=== PATIENT | female | born 1990 ===

== ENCOUNTER 2024-10-23 14:14 | Outpatient (REF) | payer MEDICAID, SELFPAY ==
--- OUTSIDE RECORDS SUMMARY | 2024-10-23 15:37 | XMS_ITS | Clinical Summary ---
Author Organization [facility] Address [address] [place] [address] Care Team Providers Care Partner Integration Planner Name Role Phone Unavailable Primary Care Provider Unavailabl e Allergies Active Allergy Reactions Criticality Noted Date Comments Diphenhydramine 05/03/2024 IV BENADRYL Medications Medication Sig Dispensed Refills Start Date End Date Status levETIRAcetam (KEPPRA) 500 MG tablet Take 1 tablet (500 mg total) by mouth 2 (two) times a day. 60 tablet 3 05/09/2024 Active lamoTRIgine (LaMICtal) 150 MG tablet Take 1 tablet (150 mg total) by mouth 2 (two) times a day. 60 tablet 3 06/11/2024 Active Social History Tobacco Use Types Packs/Day Years Used Date Smoking Tobacco: Never Assessed Sex and Gender Information Value Date Recorded Sex Assigned at Female 05/03/2024 8:38 AM EDT Gender Identity Not on file Sexual Orientation Not on file Job Start Date Occupation Industry Not on file Not on file Not on file Last Filed Vital Signs Vital Sign Reading Time Taken Comments Blood Pressure 96/65 06/11/2024 11:59 AM EDT Pulse 83 06/11/2024 11:59 AM EDT Temperature 36.1 ??C (96.9 ??F) 06/11/2024 11:59 AM E DT Respiratory Rate - - Oxygen Saturation 99% 05/03/2024 8:53 AM EDT Inhaled Oxygen Concentration - - Weight 60.3 kg (133 lb) 05/03/2024 8:53 AM EDT Height 157.5 cm (5' 2 ) 05/03/2024 8:53 AM EDT Body Mass Index 24.33 05/03/2024 8:53 AM EDT Plan of Treatment Health Maintenance Due Date Last Done Comments Hepatitis B Vaccines (1 of 3 - 3-dose series) 1992 Hepatitis C Screening 1992 COVID-19 Vaccine (#1) 02/27/1993 Depression Screening 2004 Preventative Health Evaluation 2010 DTap / Tdap / Td (1 - Tdap) 2011 Cervical Cancer Screening (P ap Smear) 2013 Influenza Vaccine (#1) 2024 Pneumococcal Vaccine Aged Out No long er eligible based on patient's age to complete this topic RSV Ped < 20 months Aged Out No longe r eligible based on patient's age to complete this topic
--- OUTSIDE RECORDS SUMMARY | 2024-10-23 15:37 | XMS_ITS | Encounter Summary ---
Author Organization [employer] Address [address] [facility] [address] [place] [address] Care Team Providers Care Landman Name Role Phone Terra Gonzalez MD Primary Care Provider + Reason for Visit * Reason Onset Date Comments Chart prep 10/21/2024 Encounter Details Date Type Department Care Team ([facility] st Contact Info) Description 10/21/2024 Telephone [facility] MEDICINE [address] [place], [place] [phone] Terra Gonzalez MD [address] [place] [address] Chart prep Social History Tobacco Use Types Packs/Day Years Used Date Smoking Tobacco: Never Smokeless Tobacco: Never Alcohol Use Standard Drinks/Week Comments Never 0 (1 standard drink = 0.6 oz pur e alcohol) Housing Stability Answer Date Recorded What is your housing situation today? I have shahnaz taylor 08/05/[address] you li ve. Do you have problems with any of the following? None of the above 08/05/2024 Food Insecurity Answer Date Recorded Within the past 12 months, y ou worried that your food would run out before you got money to buy more: Never True 08/05/2024 Within the past 12 months,th e food you bought just didn't last and you didn't have enough money to get more: Never True Transportation Answer Date Recorded In the past 12 months, has l ack of transportation kept you from medical appts, meetings, work or from getting things needed for daily living? No 08/05/2024 Utilities Answer Date Recorded In the past 12 months, has t he electric, gas, oil or water company threatened to shut off services in your home? No 08/05/2024 Depression Answer Date Recorded Patient Health Questionnaire-2 Score 0 08/19/2024 Internet Access Answer Date Recorded Internet Access Q1 No 08/19/2024 Internet Access Q2 I do not want or need it 05/2024 Comments No Sex and Gender Information Value Date Recorded Sex Assigned at Female 03/21/2024 11:43 AM EDT Legal Sex Female 11:42 AM EDT Gender Identity Female 03/21/2024 11:43 AM EDT Sexual Orientation Don't know 08/16/2024 8: 33 AM EST documented as of this encounter Miscellaneous Notes * Telephone Encounter - Vibha Cuevas MA - 10/21/2024 2:51 PM EST Chart Prep Labs: not done Images: done Vaccines due: yes Referrals: N/A Screenings: pap smear Overdue care gaps: N/A documented in this encounter Plan of Treatment Upcoming Encounters Date Type Department Care Team (Late st Contact Info) Description 12/05/2024 9:45 AM EDT Office Visit [facility] MEDICINE [address] [place] [address] Terra Gonzalez MD [address] [place] [address] documented as of this encounter Visit Diagnoses Not on filedocumented in this encounter Care Teams Landman Relationship Specialty Start Date End Date Terra Gonzalez MD [address] [place] [address] PCP - General Internal Medicine 08/19/24 documented as of this encounter
--- OUTSIDE RECORDS SUMMARY | 2024-10-23 15:37 | XMS_ITS | Encounter Summary ---
Author Organization [employer] Address [address] [place] [address] Care Team Providers Care Field Machinist Name Role Phone Terra Gonzalez MD Primary Care Provider + Encounter Details Date Type Department Care Team (Latest Contact Info) Description 10/23/2024 Travel Social History Tobacco Use Types Packs/Day Years Used Date Smoking Tobacco: Never Smokeless Tobacco: Never Alcohol Use Standard Drinks/Week Comments Never 0 (1 standard drink = 0.6 oz pur e alcohol) Housing Stability Answer Date Recorded What is your housing situation today? I have shahnaz brandon 08/05/[address] you li [...] AM EST documented as of this encounter Plan of Treatment Upcoming Encounters Date Type Department Care Team (Late st Contact Info) Description 12/05/2024 9:45 AM EDT Office Visit [facility] MEDICINE [address] [place] [address] Terra Gonzalez MD [address] [place] [address] documented as of this encounter Visit Diagnoses Not on filedocumented in this encounter Care Teams Field Machinist Relationship Specialty Start Date End Date Terra Gonzalez MD [address] [place] [address] PCP - General Internal Medicine 08/19/24 documented as of this encounter
--- OUTSIDE RECORDS SUMMARY | 2024-10-23 15:37 | XMS_ITS | Encounter Summary ---
Author Organization [employer] Address [address] [place] [address] [address], [place] [address] Care Team Providers Care Armor Officer Name Role Phone Terra Gonzalez MD Primary Care Provider + Reason for Referral * Consultation (Routine) - Authorized Specialty Diagnoses / Procedures Referred By Tj wilburn Referred To Contact Behavioral Health Diagnoses Adjustment disorder with anxious mood Terra Gonzalez MD [address] [place] [address] Phone: tel: fax: Referral ID Status Reason Start Date Expiration Date Visits Requested Visits Authorized [id number] Authorized Specialty Services Required 10/23/2024 10/23/2025 1 1 * Consultation (Routine) - Pending Review Specialty Diagnoses / Procedures Referred By Tj wilburn Referred To Contact Physical Therapy Diagnoses Upper back pain Terra Gonzalez MD [address] [place] [address] Phone: tel: fax: Referral ID Status Reason Start Date Expiration Date Visits Requested Visits Authorized [id number] Pending Review Specialty Services Required 10/23/2024 10/23/2025 1 1 Reason for Visit * Reason Comments Gynecologic Exam Encounter Details Date Type Department Care Team (Latest Contact Info) Description 10/23/2024 9:15 AM EST Procedure Visit [facility] MEDICINE [address] [place] [address] Terra Gonzalez MD [address] [place] [address] Encounter for cervical Pap smear with pelvic exam (Primary Dx); Seizure disorder (CMS/HCC); Acute pain of left knee; Upper back pain; IUD (intrauterine device) in place; Encounter for immunization; Adjustment disorder with anxious mood Social History Tobacco Use Types Packs/Day Years Used Date Smoking Tobacco: Never Smokeless Tobacco: Never Tobacco Cessation:Counseling Given: Not Answered Alcohol Use Standard Drinks/Week Comments Never 0 [...] AM EST documented as of this encounter Last Filed Vital Signs Vital Sign Reading Time Taken Comments Blood Pressure 102/65 10/23/2024 9:17 AM EST Pulse 80 10/23/2024 9:17 AM EST Temperature 35.8 ??C (96.5 ??F) 10/23/2024 9:17 AM ES T Respiratory Rate - - Oxygen Saturation 100% 10/23/2024 9:17 AM EST Inhaled Oxygen Concentration - - Weight 58.5 kg (129 lb) 10/23/2024 9:17 AM EST Height 157.5 cm (5' 2 ) 10/23/2024 9:17 AM EST Body Mass Index 23.59 10/23/2024 9:17 AM EST documented in this encounter Progress Notes * Terra Gonzalez MD - 10/23/2024 9:15 AM EST SUBJECTIVE: Juan Carlos Howard is a 34 y.o. year old female who presents for PAP . Denies recent illness, injury, or hospitalization. Patient here for Pap smear. Patient was seen in [facility] ED on October 05 due to chest pain at rest. Her labs were essentially normal with negative troponins, EKG showing sinus tachycardia but no ischemic changes. Patientwas discharged to follow-up with test. She reports that he was prior related to a cannabis gummy that she had consumed hours prior to the event. She has not had a recent episode similar to it and never had a similar episode in the past. She denies using any other recreational substance since. 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 Her EEG at the time was reportedly abnormal with localized spike and wave activity in the left temporal frontal central regions, no seizures appreciated Her last Pap smear was in 2017, no history of abnormal Pap. Last menstrual period September 26, she has regular. It has and uses IUD for control, placedon 2021 in [place]. Denies vaginal discharge, pelvic pain, dyspareunia, dysuria. 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 She feels safe at home and is able to reach out for safety. Acute Concerns: She complains of recurrent upper back pain for the past 5 to 10 years, she has received physical therapy in the past and was told that she has some deviation of her spine. She would like to be referred to counseling to help her younger son with ADHD to deal with different situations and also to help her anxiety towards managing this condition. 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 Lives with AMAB partner and 2 children ages 8 and 12 yo Patient Active Problem List Diagnosis Seizure disorder (CMS/HCC) Chronic nonintractable headache Decreased vision in both eyes Nasopharyngitis acute Preventative health care Encounter for cervical Pap smear with pelvic exam Acute pain of left knee Upper back pain IUD (intrauterine device) in place No family history on file. Review of Systems Constitutional: Negative for chills, fatigue and fever. HENT: Negative for congestion, ear pain, nosebleeds, rhinorrhea, sinus pressure, sore throat and trouble swallowing. Eyes: Negative for pain and discharge. Respiratory: Negative for cough, chest tightness and shortness of breath. Cardiovascular: Negative for chest pain, palpitations and leg swelling. Gastrointestinal: Negative for abdominal pain, blood in stool, constipation, diarrhea and nausea. Endocrine: Negative for polydipsia and polyuria. Genitourinary: Negative for dysuria, frequency, genital sores, pelvic pain and vaginal discharge. Musculoskeletal: Positive for arthralgias and back pain. Negative for neck pain. Skin: Negative for rash. Allergic/Immunologic: Negative for environmental allergies. Neurological: Negative for dizziness, seizures, weakness, light-headedness and headaches. Hematological: Negative for adenopathy. Psychiatric/Behavioral: Negative for agitation, behavioral problems, self-injury and suicidal ideas. The patient is nervous/anxious. OBJECTIVE: Vitals: 10/23/24 0917 BP: 102/65 Pulse: 80 Temp: 96.5 ??F (35.8 ??C) SpO2: 100% Physical Exam Exam conducted with a holiday detector operator present (Vibha Cuevas [place]). HENT: Right Ear: Tympanic membrane and ear canal normal. Left Ear: Tympanic membrane and ear canal normal. Mouth/Throat: Mouth: Mucous membranes are moist. Pharynx: No oropharyngeal exudate or posterior oropharyngeal erythema. Eyes: Pupils: Pupils are equal, round, and reactive to light. Cardiovascular: Rate and Rhythm: Regular rhythm. Pulses: Normal pulses. Heart sounds: Normal heart sounds. No murmur heard. Pulmonary: Breath sounds: Normal breath sounds. Abdominal: General: Bowel sounds are normal. Palpations: Abdomen is soft. Tenderness: There is no abdominal tenderness. Genitourinary: Labia: Right: No lesion. Left: No lesion. Vagina: Normal. Cervix: Normal. No cervical motion tenderness, discharge, friability or erythema. Adnexa: Right adnexa normal and left adnexa normal. Rectum: Normal. Guaiac result negative. Comments: IUD strings visible, out of the OS, no friability or bleeding. Musculoskeletal: General: Normal range of motion. Cervical back: Neck supple. Tenderness present. Thoracic back: Tenderness present. Left ankle: Tenderness present over the medial malleolus. Skin: General: Skin is warm. Neurological: General: No focal deficit present. Mental Status: She is alert and oriented to person, place, and time. Psychiatric: Mood and Affect: Mood normal. Behavior: Behavior normal. Problem List Items Addressed This Visit Encounter for cervical Pap smear with pelvic exam - Primary Pelvic exam today wnl, IUD strings in place. FU pap smear results/HPV/STI testing and will call back PRN positive results or FU in 3 months Pt feels safe at home no concern for DV/STDs Counseled regarding STI prevention If today's pap smear/co testing is normal next one will be due in 5 years. Relevant Orders Bacterial Vaginosis Chlamydia/N. Gonorrhoeae RNA, TMA, Urogenitial Pap Smear Seizure disorder (CMS/HCC) Patient had a recurrent seizure last month. Follow-up with Dr Wood from [facility] Continue Lamictal 850 mg twice daily Advise against driving for at least the next 6-month or until neurology clearance. Avoid to use recreational substances or alcohol Acute pain of left knee Take Meloxicam daily x 5d then tylenol prn Upper back pain Refer to PT Order Xrays spine to ro scoliosis Relevant Orders Referral to Physical Therapy XR Thoracic Spine 2 Views IUD (intrauterine device) in place Reportedly inserted circa 2021 Strings visible, in place. Normal pelvic exam Other Visit Diagnoses Encounter for immunization Relevant Orders COVID-19 VACCINE ([employer]) [id number] 12 yrs + (Completed) Adjustment disorder with anxious mood Relevant Orders Referral to Behavioral Health Follow Up: Current Outpatient Medications on File Prior to Visit Medication Sig Dispense Refill fluticasone (Flonase) 50 MCG/ACT nasal spray Administer 1 spray into each nostril Once per day. 16 g 0 lamoTRIgine (LaMICtal) 100 MG tablet Take 100 mg by mouth 2 times daily. levETIRAcetam (Keppra) 750 MG tablet Take 750 mg by mouth 2 times daily. No current facility-administered medications on file prior to visit. documented in this encounter Miscellaneous Notes * Assessment & Plan Note - Terra Gonzalez MD - 10/23/2024 3:15 PM EST Associated Problem(s): Upper back pain Refer to PT Order Xrays spine to ro scoliosis * Assessment & Plan Note - Terra Gonzalez MD - 10/23/2024 3:14 PM EST Associated Problem(s): IUD (intrauterine device) in place Reportedly inserted circa 2021 Strings visible, in place. Normal pelvic exam * Assessment & Plan Note - Terra Gonzalez MD - 10/23/2024 3:13 PM EST Associated Problem(s): Acute pain of left knee Take Meloxicam daily x 5d then tylenol prn * Assessment & Plan Note - Terra Gonzalez MD - 10/23/2024 9:57 AM EST Associated Problem(s): Encounter for cervical Pap smear with pelvic exam Pelvic exam today wnl, IUD strings in place. FU pap smear results/HPV/STI testing and will call back PRN positive results or FU in 3 months Pt feels safe at home no concern for DV/STDs Counseled regarding STI prevention If today's pap smear/co testing is normal next one will be due in 5 years. * Assessment & Plan Note - Terra Gonzalez MD - 10/23/2024 9:34 AM EST Associated Problem(s): Seizure disorder (CMS/HCC) Patient had a recurrent seizure last month. Follow-up with Dr Wood from [facility] Continue Lamictal 850 mg twice daily Advise against driving for at least the next 6-month or until neurology clearance. Avoid to use recreational substances or alcohol documented in this encounter Plan of Treatment Upcoming Encounters Date Type Department Care Team (Late st Contact Info) Description 12/05/2024 9:45 AM EDT Office Visit [facility] MEDICINE [address] [place] [phone] Terra Gonzalez MD [address] [place] [address] Scheduled Orders Name Type Priority Associated Diagnoses Order Schedule Bacterial Vaginosis Microbiology Routine Encounter for cervical Pap smear with pelvic exam Expected: 10/23/2024 (Approximate), Expires: 10/23/2025 Chlamydia/N. Gonorrhoeae RNA, TMA, Urogenitial Microbiology Routine Encounter for cervical Pap smear with pelvic exam Ordered: 10/23/2024 Pap Smear Pathology and Cytology Routine Encounter for cervical Pap smear with pelvic exam Ordered: 10/23/2024 XR Thoracic Spine 2 Views Imaging Routine Upper back pain Expected: 10/23/2024 (Approximate), Expires: 10/23/2025 Scheduled Referrals Name Type Priority Associated Diagnoses Order Schedule Referral to Physical Therapy Outpatient Referral Routine Upper back pain Expected: 10/23/2024 (Approximate), Expires: 10/23/2025 Referral to Behavioral Health Outpatient Referral Routine Adjustment disorder with anxious mood Expected: 10/23/2024 (Approximate), Expires: 10/23/2025 documented as of this encounter Visit Diagnoses Diagnosis Encounter for cervical Pap smear with pelvic exam- Primary Seizure disorder (CMS/HCC) Unspecified epilepsy without mention of intractable epilepsy Acute pain of left knee Upper back pain Unspecified backache IUD (intrauterine device) in place Presence of intrauterine contraceptive device Encounter for immunization Adjustment disorder with anxious mood Adjustment disorder with anxiety documented in this encounter Care Teams Armor Officer Relationship Specialty Start Date End Date Terra Gonzalez MD [address] [place] [phone] PCP - General Internal Medicine 08/19/24 documented as of this encounter
--- OUTSIDE RECORDS SUMMARY | 2024-10-23 15:37 | XMS_ITS ---
Author Name [facility] Organization Unknown History of Medication Use Medication Directions Dispensed Refills Start Date End Date Stat lamoTRIgine (LaMICtal) 100 MG tablet Take 1 tablet (100 mg total) by mouth 2 (two) times a day. 

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
--- OUTSIDE RECORDS SUMMARY | 2024-10-23 15:37 | XMS_ITS | Clinical Summary ---
Author Organization [facility] [employer] Address [address] [place] [address] Care Team Providers Care Merchant Tailor Name Role Phone Terra Gonzalez MD Primary Care Provider + Allergies No known active allergies Medications lamoTRIgine (LaMICtal) 100 MG tabletIndicatio ns:Absence Seizure Disorder Take 100 mg by mouth 2 times daily. Active levETIRAcetam (Keppra) 750 MG tabletIndicatio ns:Seizure Take 750 mg by mouth 2 times daily. Active fluticasone (Flonase) 50 MCG/ACT nasal spray Administer 1 spray into each nostril Once per day. 16 g 4 Active meloxicam (Mobic) 15 MG tablet Take 1 tablet (15 mg) by mouth Once per day for 15 days. 15 tablet 5 11/07/19 25 Active Active Problems Problem Noted Date Diagnosed Date Encounter for cervical Pap smear with pelvic exa m 10/23/2024 Assessment & Plan (10/23/2024 3:13 PM EST): Pelvic exam today wnl, IUD strings in place. FU pap smear results/HPV/STI testing and will call back PRN positive results or FU in 3 months Pt feels safe at home no concern for DV/STDs Counseled regarding STI prevention If today's pap smear/co testing is normal next one will be due in 5 years. Acute pain of left knee 10/23/2024 Assessment & Plan (10/23/2024 3:13 PM EST): Take Meloxicam daily x 5d then tylenol prn Upper back pain 10/23/2024 Assessment & Plan (10/23/2024 3:15 PM EST): Refer to PT Order Xrays spine to ro scoliosis IUD (intrauterine device) in place 10/23/2024 Assessment & Plan (10/23/2024 3:14 PM EST): Reportedly inserted circa 2021 Strings visible, in place. Normal pelvic exam Seizure disorder 08/19/2024 Assessment & Plan (10/23/2024 9:34 AM EST): Patient had a recurrent seizure last month. Follow-up with Dr Wood from [facility] Continue Lamictal 850 mg twice daily Advise against driving for at least the next 6-month or until neurology clearance. Avoid to use recreational substances or alcohol Assessment & Plan (08/19/2024 12:16 PM EST): It seems to be absence seizures? Will obtain notes from Dr Wood from [facility] Continue Lamictal and Kepra same dose Advised to avoid driving or performing activities that require vigilance Avoid recreational drugs or ETOH. Chronic nonintractable headache 08/19/2024 Assessment & Plan (08/19/2024 12:17 PM EST): ?Uncontrolled seizures? Vision problems? Ro DM, other medical conditions. I will order labs and refer to eye clinic. Take tylenol and fu in 1m Decreased vision in both eyes 08/19/2024 Assessment & Plan (08/19/2024 12:18 PM EST): Refer to eye clinic, has CULLEN. Nasopharyngitis acute 08/19/2024 Assessment & Plan (08/19/2024 12:17 PM EST): Take tylenol prn + Flonase daily x 3d Increase water intake. Re consult prn if sxs do not resolve within 1w Preventative health care 08/19/2024 Assessment & Plan (08/19/2024 12:18 PM EST): Order lipids and STI testing. Schedule Pap smear with me, will check IUD. Encounters Date Type Department Care Team Description 10/23/2024 9:15 AM EST Procedure Visit [address] [id number] Terra Gonzalez MD Encounter for cervical Pap smear with pelvic exam (Primary Dx); Seizure disorder (CMS/HCC); Acute pain of left knee; Upper back pain; IUD (intrauterine device) in place; Encounter for immunization; Adjustment disorder with anxious mood 10/23/2024 Travel 10/21/[address] [address] Terra Gonzalez MD Chart prep 09/13/[address] [address] Terra Gonzalez MD 08/27/[address] [address] Terra Gonzalez MD October08/20/[address] [address] Terra Gonzalez MD Record Request 08/19/2024 10:45 AM EST Office Visit [address] [address] Terra Gonzalez MD Seizure disorder (CMS/HCC) (Primary Dx); Nasopharyngitis acute; Decreased vision in both eyes; Chronic nonintractable headache, unspecified headache type; Preventative health care 08/19/2024 Travel 08/16/[address] [address] Terra Gonzalez MD insurance 08/15/[address] [address] Vibha Cuevas [place] Chart prep 08/05/2024 Patient Outreach [address] [id number] Terra Gonzalez MD from Last 3 Months Immunizations Name Administration Dates Next Due Pfizer Covid-19 Vaccine 12+ 10/23/2024 Social History Tobacco Use Types Packs/Day Years [...] Don't know 08/16/2024 8: 33 AM EST Last Filed Vital Signs Vital Sign Reading Time Taken Comments Blood Pressure 102/65 10/23/2024 9:17 AM EST Pulse 80 10/23/2024 9:17 AM EST Temperature 35.8 ??C (96.5 ??F) 10/23/2024 9:17 AM ES T Respiratory Rate 20 08/19/2024 10:52 AM EST Oxygen Saturation 100% 10/23/2024 9:17 AM EST Inhaled Oxygen Concentration - - Weight 58.5 kg (129 lb) 10/23/2024 9:17 AM EST Height 157.5 cm (5' 2 ) 10/23/2024 9:17 AM EST Body Mass Index 23.59 10/23/2024 9:17 AM EST Plan of Treatment Upcoming Encounters Date Type Department Care Team (Late st Contact Info) Description 12/05/2024 9:45 AM EDT Office Visit [facility] [address] [place] [address] Terra Gonzalez MD [address] [place] [address] Health Maintenance Due Date Last Done Comments HIV Screening 1992 Alcohol/Substance Use Screening 2004 Hepatitis C Screening 2010 Hepatitis B Vaccines (1 of 3 - 19+ 3-dose series) 2011 Pap Smear 2013 Cervical Cancer Screening 2022 HPV/Cotest 2022 Influenza Vaccine (#1) 2024 Depression Screening 08/19/2025 08/19/2024, 08/19/2024 Family Planning (PISQ) 08/19/2025 08/19/2024 SDOH Screening 08/19/2025 08/19/2024 Tobacco Screening 10/23/2025 10/23/2024 DTaP/Tdap/Td Vaccines (2 - T d or Tdap) 05/05/2034 05/05/2024 Zoster Vaccines (1 of 2) 2042 RSV Patients and Patients Aged 60 years or older (1 - 1-dose 75+ series) 2067 COVID-19 Vaccine Completed 10/23/2024 HIB Vaccines Aged Out No longer eligi ble based on patient's age to complete this topic HPV Vaccines Aged Out No longer eligi ble based on patient's age to complete this topic Hepatitis A Vaccines Aged Out No long er eligible based on patient's age to complete this topic IPV Vaccines Aged Out No longer eligi ble based on patient's age to complete this topic Meningococcal Vaccine Aged Out No kuldip jalen eligible based on patient's age to complete this topic Pneumococcal Vaccine: Pediatrics (0 to 5 Years) and At-Risk Patients (6 to 49) Years) Aged Out No longer eligible b ased on patient's age to complete this topic RSV under 20 months Aged Out No longe r eligible based on patient's age to complete this topic Rotavirus Vaccines Aged Out No longer eligible based on patient's age to complete this topic Insurance STANDARD Care Teams Merchant Tailor Relationship Specialty Start Date End Date Terra Gonzalez MD [address] [place] [id number] PCP - General Internal Medicine 08/19/24
--- OUTSIDE RECORDS SUMMARY | 2024-10-23 15:37 | XMS_ITS | Encounter Summary ---
Author Organization [facility] Address [address] [place] [address] Care Team Providers Care Miner Operator Name Role Phone Physician, Pcp Unknown Primary Care Provider Maribel vailable Reason for Visit * Reason Comments Chest Pain Chest pain that star iftikhar an hour ago Encounter Details Date Type Department Care Team (Late st Contact Info) Description 10/05/2024 8:12 AM EST - 10/05/2024 9:07 AM EST Emergency [facility] Emergency [address] [place] [address] Adarsh Westbrook MD [address] [address] Chest pain, unspecified type (Primary Dx) Discharge Disposition: Home or Self Care Social History Tobacco Use Types Packs/Day Years Used Date Smoking Tobacco: Never Smokeless Tobacco: Never Tobacco Cessation:Counseling Given: Not Answered Comments Unknown Sex and Gender Information Value Date Recorded Sex Assigned at Female 10/05/2024 8:55 AM EST Legal Sex Female 1:32 PM EDT Gender Identity Female 10/05/2024 8:55 AM EST Sexual Orientation Straight 10/05/2024 8: 55 AM EST documented as of this encounter Last Filed Vital Signs Vital Sign Reading Time Taken Comments Blood Pressure 100/55 10/05/2024 6:26 AM EST Pulse 78 10/05/2024 6:26 AM EST Temperature 36.4 ??C (97.6 ??F) 10/05/2024 6:26 AM ES T Respiratory Rate 16 10/05/2024 6:26 AM EST Oxygen Saturation 99% 10/05/2024 6:26 AM EST Inhaled Oxygen Concentration - - Weight 61.2 kg (135 lb) 10/05/2024 2:22 AM EST Height 157.5 cm (5' 2 ) 10/05/2024 2:22 AM EST Body Mass Index 24.69 10/05/2024 2:22 AM EST documented in this encounter Discharge Instructions * Discharge Instructions* JESSICA Durán - 10/05/2024 8:48 AM EST You were seen in the emergency department today for evaluation of chest pain Lab work, EKG, chest x-ray performed was overall reassuring Get plenty of rest Drink plenty clear fluids Avoid spicy/harsh foods, caffeinated beverages, alcohol, chocolate as these may worsen symptoms Follow-up with your primary care provider Return for any new or worsening symptoms Hope you feel better Thank you for coming to the [facility] Emergency Department today. Our entire team works together to provide you with the best care possible. Examination and treatment you received in the emergency department has been rendered on an EMERGENCY basis only. It is not intended to be a substitute for, or an effort to provide, complete medical care. You should follow-up with your primary care provider. Please report to your physician any new or remaining problems, because it is impossible to recognize and treat all elements of injury or illness in a single emergency department visit. If you do not have a primary care provider or require a referral, a follow-up doctor tax consultant for the emergency department will be provided in your discharge packet. In the event that you're unable to obtain a followup appointment in a timely fashion, OR you are not getting any better, OR you are getting worse, OR you develop any symptoms of concern, please return here immediately for further evaluation. The emergency department is open 24 hours a day, 7 days aweek. Your discharge report is based on information that was available when you were in the emergency department. The x-ray readings are preliminary and will be reviewed by a radiologist in the next 24 hours. If there is a discrepancy you will be notified by phone. If you do not have a primary care provider, please contact one of the following to make arrangements to follow up. Caitlin Ames [facility] Caitlin Irene aCitlin Paulino documented in this encounter Medications at Time of Discharge ibuprofen-acetami nophen 125-250 mg tablet Take 600 mg by mouth. 05/05/2024 lamoTRIgine (LaMICtal) 150 mg tablet Take 1 tablet (150 mg total) by mouth 2 (two) times a day. 60 each 09/13/2024 03/12/2025 levETIRAcetam (KEPPRA) 500 mg tablet Take 1 tablet (500 mg total) by mouth 2 (two) times a day. 60 each 09/13/2024 03/12/2025 documented as of this encounter Discharge Disposition Disposition Code Departure Means Destination Comment s Home or Self Care documented in this encounter Progress Notes * Allyson Ross RN - 10/05/2024 2:18 AM EST Pt to ER with c/o chest and back pain. Pain started 1.5hrs ago while she was watching a movie. Described as hurting and throbbing pain is 9 out of 10. Denies any other symptoms. * Yeni Kelly - 10/05/2024 1:42 AM EST PT UA PREG NEG Yeni Kelly 10/05/24 0251 * JESSICA Durán - 10/05/2024 1:26 AM EST Images from the original note were not included. [facility] Emergency Department Encounter Note Patient Name: Juan Carlos Kern Initial Evaluation: 10/05/2024 : 1990 Patient's PCP: Pcp Unknown Physician Emergency Provider: JESSICA Durán Chief Complaint Patient presents with Chest Pain Chest pain that started an hour ago History of Present Illness HPI: Juan Carlos is a pleasant 34-year-old female presenting to the emergency department today for evaluation of chest pain. At the time my assessment this morning, pain has nearly resolved. She developed sharpmidsternal and upper abdomen pain around 0100 this morning while watching a movie. This occurred shortly after taking a gummy that her friend had given her. The pain lasted for roughly 2 hours before beginning to subside. This made her overwhelmingly anxious. No nausea or vomiting. No fevers or chills. No shortness of breath or difficulty breathing. ROS: Review of Systems Constitutional: Negative for chills and fever. Respiratory: Negative for shortness of breath. Cardiovascular: Positive for chest pain. Negative for palpitations and leg swelling. Gastrointestinal: Negative for constipation, diarrhea, nausea and vomiting. Genitourinary: Negative for frequency and urgency. Musculoskeletal: Negative for gait problem. Skin: Negative for rash. Neurological: Negative for syncope, weakness and headaches. Psychiatric/Behavioral: Negative for suicidal ideas. Anxious All other systems reviewed and are negative. Remaining ROS are as documented in HPI. Previous History Past Medical History: Past Medical History: Diagnosis Date Seizures ([facility]) DX:Seizures ([facility]) Past Surgical History: Past Surgical History: Procedure Laterality Date SECTION PROCEDURE: SECTION Medications: Patient's Medications New Prescriptions No medications on file Previous Medications IBUPROFEN-ACETAMINOPHEN 125-250 MG TABLET Take 600 mg by mouth. LAMOTRIGINE (LAMICTAL) 150 MG TABLET Take 1 tablet (150 mg total) by mouth 2 (two) times a day. LEVETIRACETAM (KEPPRA) 500 MG TABLET Take 1 tablet (500 mg total) by mouth 2 (two) times a day. Modified Medications No medications on file Discontinued Medications No medications on file Allergies: Patient has no allergy information on record. Social and Family History: Social History Tobacco Use Smoking status: Never Smokeless tobacco: Never Substance Use Topics Alcohol use: Not on file No family history on file. Physical Exam ED Triage Vitals [10/05/24 0219] Temp Heart Rate Resp BP 37.4 ??C (99.3 ??F) 93 16 119/74 SpO2 Temp Source Heart Rate Source Patient Position 100 % Oral -- -- BP Location FiO2 (%) -- -- Physical Exam Vitals reviewed. Constitutional: General: She is not in acute distress. Appearance: She is not toxic-appearing. HENT: Head: Normocephalic and atraumatic. Eyes: Extraocular Movements: Extraocular movements intact. Pupils: Pupils are equal, round, and reactive to light. Cardiovascular: Rate and Rhythm: Normal rate and regular rhythm. Heart sounds: No murmur heard. No friction rub. No gallop. Pulmonary: Effort: Pulmonary effort is normal. No respiratory distress. Breath sounds: Normal breath sounds. Abdominal: General: There is no distension. Palpations: Abdomen is soft. Tenderness: There is no abdominal tenderness. There is no guarding or rebound. Musculoskeletal: General: Normal range of motion. Cervical back: Normal range of motion and neck supple. No rigidity. Skin: General: Skin is warm and dry. Findings: No rash. Neurological: Mental Status: She is alert and oriented to person, place, and time. ED Results: ED Labs: Labs Reviewed COMPREHENSIVE METABOLIC PANEL - Abnormal Result Value Sodium 138 Potassium 4.1 Chloride 107 CO2 28 Anion Gap 3 Glucose 114 (*) BUN 10 Creatinine 0.88 eGFR 90 BUN/Creatinine Ratio 11.4 Calcium 9.1 AST (SGOT) 21 ALT (SGPT) 17 Alkaline Phosphatase 105 Total Protein 7.4 Albumin 4.1 Total Bilirubin 0.3 TROPONIN I HIGH SENSITIVITY - Normal High Sensitivity Troponin I <3 Narrative: High levels of biotin in samples may falsely decrease hsTroponin values. Use caution when interpreting hsTroponin results in patients taking biotin who exhibit renal impairment (eGFR <60) or in patients taking more than 20 mg/day of biotin. TROPONIN I HIGH SENSITIVITY - Normal High Sensitivity Troponin I <3 Narrative: High levels of biotin in samples may falsely decrease hsTroponin values. Use caution when interpreting hsTroponin results in patients taking biotin who exhibit renal impairment (eGFR <60) or in patients taking more than 20 mg/day of biotin. LIPASE - Normal Lipase 63 MAGNESIUM - Normal Magnesium 2.1 B-TYPE NATRIURETIC PEPTIDE - Normal BNP 10 CBC AND DIFFERENTIAL Narrative: The following orders were created for panel order CBC and differential. Procedure Abnormality Status --------- ------ CBC auto differential[[id number]] Final result Please view results for these tests on the individual orders. CBC WITH AUTO DIFFERENTIAL WBC 6.0 RBC 4.40 Hemoglobin 11.9 Hematocrit 37.2 MCV 85.5 MCH 27.4 MCHC 32.0 RDW 13.1 Platelets 390 MPV 9.4 NRBC 0.0 NRBC Absolute 0.00 Neutrophils Relative 68.6 Lymphocytes Relative 20.5 Monocytes Relative 7.7 Eosinophils Relative 2.7 Basophils Relative 0.3 Immature Granulocytes Relative 0.2 Neutrophils Absolute 4.08 Lymphocytes Absolute 1.22 Monocytes Absolute 0.46 Eosinophils Absolute 0.16 Basophils Absolute 0.02 Immature Granulocytes Absolute 0.01 ED Radiology: XR Chest 2 Views Final Result Impression: No active pulmonary process identified. Telerad PA ([id number]) -------- FINAL REPORT -------- Dictated By: Jeni Garland Dictated Date: 10/05/2024 08:34 ET Assigned Physician: Jeni Garland Reviewed and Electronically Signed By: Jeni Garland Signed Date: 10/05/2024 08:35 ET Workstation ID: [id number] Transcribed By: Self Edit Transcribed Date: 10/05/2024 08:34 ET The laboratory results, imaging results and other diagnostic exam results related to this ED encounter were reviewed in the EMR. ED Procedures: Procedures ED Administered Mediations: Medications - No data to display ED Pre-Disposition Vitals: Vitals: 10/05/24 0626 BP: 100/55 Pulse: 78 Resp: 16 Temp: 36.4 ??C (97.6 ??F) SpO2: 99% Differential Diagnosis ACS PE Pneumonia Pleurisy GERD Viscus ulcer Perforated ulcer less likely Anxiety Medical Decision Making, ED Course MDM: Medical Decision Making Juan Carlos is a pleasant 34-year-old female with past medical history as listed before presenting today for evaluation of chest pain. Single episode of sharp chest pain that occurred around 0100 this morning after taking a gummy from a friend . For several hours before subsiding. Nearly pain-free and asymptomatic at the time my assessment this morning. Received cardiac workup on arrival for chief complaint of chest pain. Low suspicion for cardiac etiology. Workup in general is reassuring. Please see ED Course below for updates regarding ED results and course of the ED visit. ED Course: ED Course as of 10/05/24 0849 Sat Oct 05, 2024 0842 Chest x-ray without acute infiltrates. [CC] 0843 EKG showing sinus tachycardia to 111 bpm, no ST segment changes or T wave inversions. No prioravailable for comparison. [CC] 0843 No significant leukocytosis or anemia. Electrolytes renal function liver function studies are essentially unremarkable. High-sensitivity troponin resulted at less than 3. [CC] 0843 Repeat high-sensitivity opponent is also less than 3. [CC] 0843 Tachycardia has resolved on examination [CC] ED Course User Index [CC] JESSICA Durán Clinical Impressions as of 10/05/24 0849 Chest pain, unspecified type ED Prescriptions: ED Prescriptions None Disposition: Discharge Condition: Stable Diagnosis / Impression: Final diagnoses: [R07.9] Chest pain, unspecified type Provider Attestation Electronically signed by JESSICA Durán-JESSICA Gerard 10/05/24 0846 JESSICA Durán 10/05/24 0849 Cosigned by Adarsh Westbrook MD at 10/05/2024 8:54 AM EST Associated attestation - Adarsh Westbrook MD - 10/05/2024 8:54 AM EST I performed a history and physical examination and discussed the patient management with preceding Advanced Practice Provider. I agree with the history and physical assessment and plan of care, with the following exceptions: None I was present for the following boateng procedures: None Agree with assessment and plan for discharge based on no significant risk factors for ACS pneumoniaor PE. Adarsh Westbrook MD documented in this encounter Plan of Treatment Upcoming Encounters Date Type Department Care Team (Late st Contact Info) Description 10/25/2024 10:00 AM EST Office Visit [facility] [address] [place] [address] Gilberto Wood MD [address] [place] [address] documented as of this encounter Procedures Procedure Name Priority Date/Time Associated Diagnosis Comments TROPONIN I HIGH SENSITIVITY STAT 10/05/2024 2:49 AM EST XR CHEST 2 VIEWS STAT 10/05/2024 2:06 AM EST TROPONIN I HIGH SENSITIVITY STAT 10/05/2024 1:51 AM EST CBC WITH AUTO DIFFERENTIAL STAT 10/05/2024 1:51 AM EST CBC AND DIFFERENTIAL STAT 10/05/2024 1:51 AM EST B-TYPE NATRIURETIC PEPTIDE STAT 10/05/2024 1:51 AM EST MAGNESIUM STAT 10/05/2024 1:51 AM EST LIPASE STAT 10/05/2024 1:51 AM EST COMPREHENSIVE METABOLIC PANEL STAT 10/05/2024 1:51 AM EST ECG 12-LEAD STAT 10/05/2024 1:39 AM EST ECG ANNOTATED 10/05/2024 documented in this encounter Results * Troponin I high sensitivity (10/05/2024 2:49 AM EST) High Sensitivity Troponin I <3 <=54 ng/L LAB CHEMISTRY METHOD 10/05/2024 4:46 AM EST [facility] Blood Venous blood specimen / Unknown Venipuncture / Unknown 10/05/2024 2:49 AM EST 10/05/2024 3:08 AM EST Narrative [facility] - 10/05/2024 4:46 AM EST High levels of biotin in samples may falsely decrease hsTroponin values. ??Use caution when interpreting hsTroponin results in patients taking biotin who exhibit renal impairment (eGFR <60) or in patients taking more than 20 mg/day of biotin. us Alissa Huff MD LAB BLOOD ORDERABLES Fin al Result [facility] [address] [place] [address], [place] [phone] * XR Chest 2 Views (10/05/2024 2:06 AM EST) Anatomical Region Laterality Modality Body Radiographic Velvet ging 10/05/2024 8:34 AM EST Impressions 10/05/2024 8:35 AM EST Impression: No active pulmonary process identified. Telerad PA ([id number]) -------- FINAL REPORT -------- Dictated By: Jeni Garland Dictated Date: 10/05/2024 08:34 ET Assigned Physician: Jeni Garland Reviewed and Electronically Signed By: Jeni Garland Signed Date: 10/05/2024 08:35 ET Workstation ID: [id number] Transcribed By: Self Edit Transcribed Date: 10/05/2024 08:34 ET Narrative 10/05/2024 8:35 AM EST History: Chest pain. Comparison: No comparison imaging at this institution. Findings: PA and lateral views. The cardiomediastinal silhouette, hilar contours and pulmonary vascularity are within normal limits. The lungs are clear. The costophrenic angles are sharp. An S-shaped thoracolumbar scoliosis is partially imaged, convex right in the lower thoracic area. Procedure Note Jeni Garland MD - 10/05/2024 History: Chest pain. Comparison: No comparison imaging at this institution. Findings: PA and lateral views. The cardiomediastinal silhouette, hilar contours andpulmonary vascularity are within normal limits. The lungs are clear. Thecostophrenic angles are sharp. An S-shaped thoracolumbar scoliosis is partially imaged, convex right inthe lower thoracic area. IMPRESSION: Impression: No active pulmonary process identified. Telerad JESSICA ([id number]) -------- FINAL REPORT -------- Dictated By: Jeni Garland Dictated Date: 10/05/2024 08:34 ET Assigned Physician: Jeni Garland Reviewed and Electronically Signed By: Jeni Garland Signed Date: 10/05/2024 08:35 ET Workstation ID: [id number] Transcribed By: Self Edit Transcribed Date: 10/05/2024 08:34 ET us Alissa Huff MD IMG XR PROCEDURES Final Result * CBC auto differential (10/05/2024 1:51 AM EST) [facility] WBC 6.0 4.8 - 10.8 K/mcL LAB HEMETOLOGY METHOD 10/05/2024 2:35 AM EST [facility] RBC 4.40 3.80 - 4.80 M/mcL LAB HEMETOLOGY METHOD 10/05/2024 2:35 AM [facility] Hemoglobin 11.9 11.5 - 16.0 g/dL LAB HEMETOLOGY METHOD 10/05/2024 2:35 AM [facility] Hematocrit 37.2 35.0 - 47.0 % LAB HEMETOLOGY METHOD 10/05/2024 2:35 AM [facility] MCV 85.5 79.0 - 98.0 FL LAB HEMETOLOGY METHOD 10/05/2024 2:35 AM [facility] MCH 27.4 27.0 - 32.0 pcg LAB HEMETOLOGY METHOD 10/05/2024 2:35 AM [facility] MCHC 32.0 32.0 - 37.0 g/dL LAB HEMETOLOGY METHOD 10/05/2024 2:35 AM [facility] RDW 13.1 11.0 - 15.0 % LAB HEMETOLOGY METHOD 10/05/2024 2:35 AM [facility] Platelets 390 130 - 400 K/mcL LAB HEMETOLOGY METHOD 10/05/2024 2:35 AM [facility] MPV 9.4 7.0 - 11.0 FL LAB HEMETOLOGY METHOD 10/05/2024 2:35 AM [facility] NRBC 0.0 <1.0 % LAB HEMETOLOGY METHOD 10/05/2024 2:35 AM [facility] NRBC Absolute 0.00 <0.10 K/mcL LAB HEMETOLOGY METHOD 10/05/2024 2:35 AM [facility] Neutrophils Relative 68.6 % LAB HEMETOLOGY METHOD 10/05/2024 2:35 AM [facility] Lymphocytes Relative 20.5 % LAB HEMETOLOGY METHOD 10/05/2024 2:35 AM [facility] Monocytes Relative 7.7 % LAB HEMETOLOGY METHOD 10/05/2024 2:35 AM [facility] Eosinophils Relative 2.7 % LAB HEMETOLOGY METHOD 10/05/2024 2:35 AM [facility] Basophils Relative 0.3 % LAB HEMETOLOGY METHOD 10/05/2024 2:35 AM [facility] Immature Granulocytes Relative 0.2 % LAB HEMETOLOGY METHOD 10/05/2024 2:35 AM [facility] Neutrophils Absolute 4.08 1.50 - 7.00 K/mcL LAB HEMETOLOGY METHOD 10/05/2024 2:35 AM [facility] Lymphocytes Absolute 1.22 1.00 - 5.00 K/mcL LAB HEMETOLOGY METHOD 10/05/2024 2:35 AM [facility] Monocytes Absolute 0.46 0.20 - 1.00 K/mcL LAB HEMETOLOGY METHOD 10/05/2024 2:35 AM [facility] Eosinophils Absolute 0.16 0.00 - 0.50 K/mcL LAB HEMETOLOGY METHOD 10/05/2024 2:35 AM [facility] Basophils Absolute 0.02 0.00 - 0.20 K/[facility] LAB HEMETOLOGY METHOD 10/05/2024 2:35 AM EST [facility] Immature Granulocytes Absolute 0.01 0.00 - 0.03 K/[facility] LAB HEMETOLOGY METHOD 10/05/2024 2:35 AM EST [facility] Blood Venous blood specimen / Unknown Venipuncture / Unknown 10/05/2024 1:51 AM EST 10/05/2024 2:24 AM EST Alissa Huff MD LAB BLOOD ORDERABLES Fin al Result [facility] [address] [place] [address], * B-type natriuretic peptide (10/05/2024 1:51 AM EST) BNP 10 <=100 pcg/mL LAB CHEMISTRY METHOD 10/05/2024 3:03 AM EST [facility] Blood Venous blood specimen / Unknown Venipuncture / Unknown 10/05/2024 1:51 AM EST 10/05/2024 2:24 AM EST Alissa Huff MD LAB BLOOD ORDERABLES Fin al Result [facility] [address] [place] [address], [place] [phone] * Magnesium (10/05/2024 1:51 AM EST) Magnesium 2.1 1.9 - 2.6 mg/dL LAB CHEMISTRY METHOD 10/05/2024 2:57 AM EST [facility] Blood Venous blood specimen / Unknown Venipuncture / Unknown 10/05/2024 1:51 AM EST 10/05/2024 2:24 AM EST Alissa Huff MD LAB BLOOD ORDERABLES Fin al Result Performing Organization Address [facility]/ZIP Co de Phone Number [facility] [address] [place] [address], [place] [phone] * Lipase (10/05/2024 1:51 AM EST) Lipase 63 13 - 75 unit/L LAB CHEMISTRY METHOD 10/05/2024 2:57 AM EST [facility] Blood Venous blood specimen / Unknown Venipuncture / Unknown 10/05/2024 1:51 AM EST 10/05/2024 2:24 AM EST Alissa Huff MD LAB BLOOD ORDERABLES Fin al Result Performing Organization Address [facility]/ZIP Co de Phone Number [facility] [address] [place] [address], [place] [phone] * (ABNORMAL) Comprehensive metabolic panel (10/05/2024 1:51 AM EST) Pathologist [facility] Sodium 138 133 - 145 mmol/L LAB CHEMISTRY METHOD 10/05/2024 3:06 AM [facility] Potassium 4.1 3.5 - 5.5 mmol/L LAB CHEMISTRY METHOD 10/05/2024 3:06 AM [facility] Chloride 107 96 - 110 mmol/L LAB CHEMISTRY METHOD 10/05/2024 3:06 AM [facility] CO2 28 21 - 32 mmol/L LAB CHEMISTRY METHOD 10/05/2024 3:06 AM [facility] Anion Gap 3 3 - 11 LAB CHEMISTRY METHOD 10/05/2024 3:06 AM [facility] Glucose 114(H) 70 - 100 mg/dL LAB CHEMISTRY METHOD 10/05/2024 3:06 AM [facility] BUN 10 5 - 25 mg/dL LAB CHEMISTRY METHOD 10/05/2024 3:06 AM [facility] Creatinine 0.88 0.50 - 1.10 mg/dL LAB CHEMISTRY METHOD 10/05/2024 3:06 AM [facility] eGFR 90 >=60 mL/min/1. 73m2 LAB CHEMISTRY METHOD 10/05/2024 3:06 AM [facility] Comment:Calculation based on the??Chronic Kidney Disease Epidemiology Collaboration (CKD-EPI) equation refit??without adjustment for race. BUN/Creatinine Ratio 11.4 LAB CHEMISTRY METHOD 10/05/2024 3:06 AM [facility] Calcium 9.1 8.5 - 10.5 mg/dL LAB CHEMISTRY METHOD 10/05/2024 3:06 AM [facility] AST (SGOT) 21 10 - 42 unit/L LAB CHEMISTRY METHOD 10/05/2024 3:06 AM [facility] ALT (SGPT) 17 10 - 60 unit/L LAB CHEMISTRY METHOD 10/05/2024 3:06 AM [facility] Alkaline Phosphatase 105 42 - 121 unit/L LAB CHEMISTRY METHOD 10/05/2024 3:06 AM [facility] Total Protein 7.4 6.0 - 8.0 g/dL LAB CHEMISTRY METHOD 10/05/2024 3:06 AM [facility] Albumin 4.1 3.2 - 5.0 g/dL LAB CHEMISTRY METHOD 10/05/2024 3:06 AM [facility] Total Bilirubin 0.3 0.0 - 1.4 mg/dL LAB CHEMISTRY METHOD 10/05/2024 3:06 AM [facility] Blood Venous blood specimen / Unknown Venipuncture / Unknown 10/05/2024 1:51 AM EST 10/05/2024 2:24 AM EST us Alissa Huff MD LAB BLOOD ORDERABLES Fin al Result [facility] [address] [place] [address], [place] [phone] * Troponin I high sensitivity (10/05/2024 1:51 AM EST) [facility] High Sensitivity Troponin I <3 <=54 ng/L LAB CHEMISTRY METHOD 10/05/2024 2:54 AM EST [facility] Blood Venous blood specimen / Unknown Venipuncture / Unknown 10/05/2024 1:51 AM EST 10/05/2024 2:24 AM EST Narrative [facility] - 10/05/2024 2:54 AM EST High levels of biotin in samples may falsely decrease hsTroponin values. ??Use caution when interpreting hsTroponin results in patients taking biotin who exhibit renal impairment (eGFR <60) or in patients taking more than 20 mg/day of biotin. Alissa Huff MD LAB BLOOD ORDERABLES Fin al Result Performing Organization Address [facility]UST Co de Phone Number [facility] [address] [place] [address], [place] [phone] * ECG 12 lead (10/05/2024 1:39 AM EST) [facility] Ventricular Rate ECG 111 BPM GEMUSE Atrial Rate 111 BPM GEMUSE P-R Interval 128 ms GEMUSE QRS Duration 86 ms GEMUSE Q-T Interval 344 ms GEMUSE QTc 467 ms GEMUSE P Wave [place] 1 degrees GEMUSE R [place] 43 degrees GEMUSE T [place] 18 degrees GEMUSE ECG Interpretation Sinus tachycardia Otherwise normal ECG No previous ECGs available Confirmed by AVELINA DON ([id number]) on 10/05/2024 4:50:21 PM GEMUSE 10/05/2024 1:39 AM EST 10/05/2024 4:50 PM EST Alissa Huff MD ECG ORDERABLES Final Re sult Performing Organization Address [facility]/ZIP Co de Phone Number GEMUSE * ECG-Annotated (10/05/2024) us Provider Onbase MD ECG ORDERABLES Final Result documented in this encounter Visit Diagnoses Diagnosis Chest pain, unspecified type- Primary documented in this encounter Care Teams Miner Operator Relationship Specialty Start Date End Date Physician, Pcp Unknown PCP - General 10/05/24 documented as of this encounter
--- OUTSIDE RECORDS SUMMARY | 2024-10-23 15:37 | XMS_ITS | Clinical Summary ---
Author Organization [facility] Address [address] [place] [address] Phone Care Team Providers Care Chief Clerk Shelter Name Role Phone Physician, Pcp Unknown Primary Care Provider Maribel vailable Medications ibuprofen-acetam inophen 125-250 mg tablet Take 600 mg by mouth. 05/05/2024 Active lamoTRIgine (LaMICtal) 150 mg tablet Take 1 tablet (150 mg total) by mouth 2 (two) times a day. 60 each 5 09/13/2024 5 Active levETIRAcetam (KEPPRA) 500 mg tablet Take 1 tablet (500 mg total) by mouth 2 (two) times a day. 60 each 5 09/13/2024 5 Active Active Problems No known active problems Encounters Date Type Department Care Team Description 10/05/2024 8:12 AM EST - 10/05/2024 9:07 AM EST Emergency [facility] Emergency [address] [place] [address] Adarsh Westbrook MD Chest pain, unspecified type (Primary Dx) Discharge Disposition: Home or Self Care 08/16/2024 2:00 PM EST Office Visit [facility] [address] [address] Ashley Meeks PA Seizure (CMS/HCC) (Primary Dx) from Last 3 Months Surgical History Surgery Date Site/Laterality Comments SECTION PROCEDURE: SECTION Medical History Medical History Date Comments Seizures (CMS/HCC) DX:Seizures ( HCC) Social History Tobacco Use Types Packs/Day Years Used Date Smoking Tobacco: Never Smokeless Tobacco: Never Tobacco Cessation:Counseling Given: Not Answered Comments Unknown Sex and Gender Information Value Date Recorded Sex Assigned at Female 10/05/2024 8:55 AM EST Legal Sex Female 1:32 PM EDT Gender Identity Female 10/05/2024 8:55 AM EST Sexual Orientation Straight 10/05/2024 8: 55 AM EST Obstetrics History Last Filed Vital Signs Vital Sign Reading [...] Mass Index 24.69 10/05/2024 2:22 AM EST Plan of Treatment Upcoming Encounters Date Type Department Care Team (Late st Contact Info) Description 10/25/2024 10:00 AM EST Office Visit [facility] [address] [facility] [address] [place] [id number] Gilberto Wood MD [address] [facility] [address] [place] [phone] Health Maintenance Due Date Last Done Comments Hepatitis B Vaccines (1 of 3 - 19+ 3-dose series) 2011 Cervical Cancer Screening: P ap Smear 2013 COVID-19 Vaccine ( - 2023-2 5 season) 2024 Influenza Vaccine (#1) 2024 Depression Screening 06/19/2024 HIV Screening 06/19/2024 Hepatitis C Screening 06/19/2024 Social Influencers of Health Screening 06/19/2024 DTaP,Tdap,and Td Vaccines (2 - Td or Tdap) 05/05/2034 05/05/2024 HIB Vaccines Aged Out No longer eligi [...] on patient's age to complete this topic MMR Vaccines Aged Out No longer eligi ble based on patient's age to complete this topic Meningococcal ACWY Vaccine Aged Out N o longer eligible based on patient's age to complete this topic Meningococcal B Vacine Aged Out No lo nger eligible based on patient's age to complete this topic Pneumococcal Vaccine: Pediat rics (0 to 5 Years) and At-Risk Patients (6 to 64 Years) Aged Out No longer eligi ble based on patient's age to complete this topic RSV Immunization Patients Un sergio 20 months Aged Out No longer eligible b ased on patient's age to complete this topic Varicella Vaccines Aged Out No longer eligible based on patient's age to complete this topic Procedures Procedure Name Priority Date/Time Associated Diagnosis Comments TROPONIN I HIGH SENSITIVITY STAT 10/05/2024 2:49 AM EST XR CHEST 2 VIEWS STAT 10/05/2024 2:06 AM EST CBC WITH AUTO DIFFERENTIAL STAT 10/05/2024 1:51 AM EST B-TYPE NATRIURETIC PEPTIDE STAT 10/05/2024 1:51 AM EST MAGNESIUM STAT 10/05/2024 1:51 AM EST LIPASE STAT 10/05/2024 1:51 AM EST COMPREHENSIVE METABOLIC PANEL STAT 10/05/2024 1:51 AM EST CBC AND DIFFERENTIAL STAT 10/05/2024 1:51 AM EST TROPONIN I HIGH SENSITIVITY STAT 10/05/2024 1:51 AM EST ECG 12-LEAD STAT 10/05/2024 1:39 AM EST ECG ANNOTATED 10/05/2024 LAMOTRIGINE LEVEL Routine 08/16/2024 3:1 3 PM EST Seizure (CMS/HCC) LEVETIRACETAM LEVEL Routine 08/16/2024 3 :13 PM EST Seizure (CMS/HCC) from Last 3 Months Results * Troponin I high sensitivity (10/05/2024 2:49 AM EST) Only the most recent of2 resultswithin the time period is included. High Sensitivity Troponin I <3 <=54 ng/L LAB CHEMISTRY METHOD 10/05/2024 4:46 AM EST [facility] Blood Venous blood specimen / Unknown Venipuncture / Unknown 10/05/2024 2:49 AM EST 10/05/2024 3:08 AM EST Narrative [facility] - 10/05/2024 4:46 AM EST High levels of biotin in samples may falsely decrease hsTroponin values. ??Use caution when interpreting hsTroponin results in patients taking biotin who exhibit renal impairment (eGFR <60) or in patients taking more than 20 mg/day of biotin. us Alissa Huff MD LAB BLOOD ORDERABLES Fin al Result [facility] [address] [place] [address], [place] [phone] * XR Chest 2 Views (10/05/2024 2:06 AM EST) Anatomical Region Laterality Modality Body Radiographic Velvet ging 10/05/2024 8:34 AM EST Impressions 10/05/2024 8:35 AM EST Impression: No active pulmonary process identified. Telehunter LOPEZ ([id number]) -------- FINAL REPORT -------- Dictated By: Jeni Garland Dictated Date: 10/05/2024 08:34 ET Assigned Physician: Jeni Garland Reviewed and Electronically Signed By: Jeni Garland Signed Date: 10/05/2024 08:35 ET Workstation ID: [id number] Transcribed By: Self Edit Transcribed Date: 10/05/2024 [...] No active pulmonary process identified. Telerad PA ([id number]) -------- FINAL REPORT -------- Dictated By: Jeni Garland Dictated Date: 10/05/2024 08:34 ET Assigned Physician: Jeni Garland Reviewed and Electronically Signed By: Jeni Garland Signed Date: 10/05/2024 08:35 ET Workstation ID: [id number] Transcribed By: Self Edit Transcribed Date: 10/05/2024 08:34 ET us Alissa Huff MD IMG XR PROCEDURES Final Result * CBC auto differential (10/05/2024 1:51 AM EST) [facility] Signature WBC 6.0 4.8 - 10.8 K/[facility] LAB HEMETOLOGY METHOD 10/05/2024 2:35 AM EST [facility] RBC 4.40 3.80 - 4.80 M/mcL LAB HEMETOLOGY METHOD 10/05/2024 2:35 AM [facility] Hemoglobin 11.9 11.5 - 16.0 g/dL LAB HEMETOLOGY METHOD 10/05/2024 2:35 AM [facility] Hematocrit 37.2 35.0 - 47.0 % LAB HEMETOLOGY METHOD 10/05/2024 2:35 AM [facility] MCV 85.5 79.0 - 98.0 FL LAB HEMETOLOGY METHOD 10/05/2024 2:35 AM [facility] MCH 27.4 27.0 - 32.0 pcg LAB HEMETOLOGY METHOD 10/05/2024 2:35 AM [facility] MCHC 32.0 32.0 - 37.0 g/dL LAB HEMETOLOGY METHOD 10/05/2024 2:35 AM [facility] RDW 13.1 11.0 - 15.0 % LAB HEMETOLOGY METHOD 10/05/2024 2:35 AM [facility] Platelets 390 130 - 400 K/mcL LAB HEMETOLOGY METHOD 10/05/2024 2:35 AM [facility] MPV 9.4 7.0 - 11.0 FL LAB HEMETOLOGY METHOD 10/05/2024 2:35 AM [facility] NRBC 0.0 <1.0 % LAB HEMETOLOGY METHOD 10/05/2024 2:35 AM [facility] NRBC Absolute 0.00 <0.10 K/mcL LAB HEMETOLOGY METHOD 10/05/2024 2:35 AM [facility] Neutrophils Relative 68.6 % LAB HEMETOLOGY METHOD 10/05/2024 2:35 AM [facility] Lymphocytes Relative 20.5 % LAB HEMETOLOGY METHOD 10/05/2024 2:35 AM [facility] Monocytes Relative 7.7 % LAB HEMETOLOGY METHOD 10/05/2024 2:35 AM EST [facility] Eosinophils Relative 2.7 % LAB HEMETOLOGY METHOD 10/05/2024 2:35 AM [facility] Basophils Relative 0.3 % LAB HEMETOLOGY METHOD 10/05/2024 2:35 AM [facility] Immature Granulocytes Relative 0.2 % LAB HEMETOLOGY METHOD 10/05/2024 2:35 AM EST [facility] Neutrophils Absolute 4.08 1.50 - 7.00 K/mcL LAB HEMETOLOGY METHOD 10/05/2024 2:35 AM [facility] Lymphocytes Absolute 1.22 1.00 - 5.00 K/mcL LAB HEMETOLOGY METHOD 10/05/2024 2:35 AM [facility] Monocytes Absolute 0.46 0.20 - 1.00 K/mcL LAB HEMETOLOGY METHOD 10/05/2024 2:35 AM EST [facility] Eosinophils Absolute 0.16 0.00 - 0.50 K/mcL LAB HEMETOLOGY METHOD 10/05/2024 2:35 AM EST [facility] Basophils Absolute 0.02 0.00 - 0.20 K/mcL LAB HEMETOLOGY METHOD 10/05/2024 2:35 AM EST [facility] Immature Granulocytes Absolute 0.01 0.00 - 0.03 K/mcL LAB HEMETOLOGY METHOD 10/05/2024 2:35 AM [facility] Blood Venous blood specimen / Unknown Venipuncture / Unknown 10/05/2024 1:51 AM EST 10/05/2024 2:24 AM EST us Alissa Huff MD LAB BLOOD ORDERABLES Fin al Result [facility] [address] [place] [address], [place] [phone] * B-type natriuretic peptide (10/05/2024 1:51 AM EST) BNP 10 <=100 pcg/mL LAB CHEMISTRY METHOD 10/05/2024 3:03 AM EST [facility] Blood Venous blood specimen / Unknown Venipuncture / Unknown 10/05/2024 1:51 AM EST 10/05/2024 2:24 AM EST Alissa Huff MD LAB BLOOD ORDERABLES Fin al Result [facility] [address] [place] [address], [place] [phone] * Magnesium (10/05/2024 1:51 AM EST) [facility] Magnesium 2.1 1.9 - 2.6 mg/dL LAB CHEMISTRY METHOD 10/05/2024 2:57 AM EST [facility] Blood Venous blood specimen / Unknown Venipuncture / Unknown 10/05/2024 1:51 AM EST 10/05/2024 2:24 AM EST Alissa Huff MD LAB BLOOD ORDERABLES Fin al Result [facility] [address] [place] [address], [place] [phone] * Lipase (10/05/2024 1:51 AM EST) Lipase 63 13 - 75 unit/L LAB CHEMISTRY METHOD 10/05/2024 2:57 AM EST [facility] Blood Venous blood specimen / Unknown Venipuncture / Unknown 10/05/2024 1:51 AM EST 10/05/2024 2:24 AM EST us Alissa Huff MD LAB BLOOD ORDERABLES Fin al Result [facility] [address] [place] [address], [place] [phone] * (ABNORMAL) Comprehensive metabolic panel (10/05/2024 1:51 AM EST) Sodium 138 133 - 145 mmol/L LAB CHEMISTRY METHOD 10/05/2024 3:06 AM [facility] Potassium 4.1 3.5 - 5.5 mmol/L LAB CHEMISTRY METHOD 10/05/2024 3:06 AM [facility] Chloride 107 96 - 110 mmol/L LAB CHEMISTRY METHOD 10/05/2024 3:06 AM [facility] CO2 28 21 - 32 mmol/L LAB CHEMISTRY METHOD 10/05/2024 3:06 AM [facility] Anion Gap 3 3 - 11 LAB CHEMISTRY METHOD 10/05/2024 3:06 AM [facility] Glucose 114(H) 70 - 100 mg/dL LAB CHEMISTRY METHOD 10/05/2024 3:06 AM [facility] BUN 10 5 - 25 mg/dL LAB CHEMISTRY METHOD 10/05/2024 3:06 AM [facility] Creatinine 0.88 0.50 - 1.10 mg/dL LAB CHEMISTRY METHOD 10/05/2024 3:06 AM [facility] eGFR 90 >=60 mL/min/1. 73m2 LAB CHEMISTRY METHOD 10/05/2024 3:06 AM [facility] Comment:Calculation based on the??Chronic Kidney Disease Epidemiology Collaboration (CKD-EPI) equation refit??without adjustment for race. BUN/Creatinine Ratio 11.4 LAB CHEMISTRY METHOD 10/05/2024 3:06 AM [facility] Calcium 9.1 8.5 - 10.5 mg/dL LAB CHEMISTRY METHOD 10/05/2024 3:06 AM [facility] AST (SGOT) 21 10 - 42 unit/L LAB CHEMISTRY METHOD 10/05/2024 3:06 AM [facility] ALT (SGPT) 17 10 - 60 unit/L LAB CHEMISTRY METHOD 10/05/2024 3:06 AM [facility] Alkaline Phosphatase 105 42 - 121 unit/L LAB CHEMISTRY METHOD 10/05/2024 3:06 AM [facility] Total Protein 7.4 6.0 - 8.0 g/dL LAB CHEMISTRY METHOD 10/05/2024 3:06 AM [facility] Albumin 4.1 3.2 - 5.0 g/dL LAB CHEMISTRY METHOD 10/05/2024 3:06 AM [facility] Total Bilirubin 0.3 0.0 - 1.4 mg/dL LAB CHEMISTRY METHOD 10/05/2024 3:06 AM [facility] Blood Venous blood specimen / Unknown Venipuncture / Unknown 10/05/2024 1:51 AM EST 10/05/2024 2:24 AM EST Alissa Huff MD LAB BLOOD ORDERABLES Fin al Result [facility] [address] [place] [address], * ECG 12 lead (10/05/2024 1:39 AM EST) Ventricular Rate ECG 111 BPM GEMUSE Atrial Rate 111 BPM GEMUSE P-R Interval 128 ms GEMUSE QRS Duration 86 ms GEMUSE Q-T Interval 344 ms GEMUSE QTc 467 ms GEMUSE P Wave Andreas 1 degrees GEMUSE R Andreas 43 degrees GEMUSE T Andreas 18 degrees GEMUSE ECG Interpretation Sinus tachycardia Otherwise normal ECG No previous ECGs available Confirmed by AVELINA DON ([id number]) on 10/05/2024 4:50:21 PM GEMUSE 10/05/2024 1:39 AM EST 10/05/2024 4:50 PM EST Alissa Huff MD ECG ORDERABLES Final Re sult Performing Organization Address City/[facility]/ZIP Co de Phone Number MARIAMA * ECG-Annotated (10/05/2024) us Provider Onbase ECG ORDERABLES Final Result * Levetiracetam level (08/16/2024 3:13 PM EST) Levetiracetam 17.1 3.0 - 60.0 ug/mL 08/19/2024 6:15 AM EST [facility] Comment: Steady state trough serum or plasma levels following doses of 1000 to 3000 mg/Day: ??3 to 37 ug/mL. The same dosage regimen will typically result in peak levels of 10 to 60 ug/mL, at approximately 1.5 hours post dose. If applicable, any drug confirmation testing reported here was developed and the performance characteristics determined by [facility]. This confirmation testing has not been cleared or approved by the FDA. The laboratory is regulated under CLIA as qualified to perform high-complexity testing. This test is used for patient testing purposes. It should not be regarded as investigational or for research. Test performed at [facility], [address] , [place], [place] [address] ? [phone] Angelina Toscano MD, PhD - Grader Tender Blood Venous blood specimen / Unknown Venipuncture / Unknown 08/16/2024 3:13 PM EST 08/16/2024 3:13 PM EST Ashley LOPEZ LAB BLOOD ORDERABLES Final R esult Performing Organization Address City/[facility]/ZIP Co de Phone Number [facility] [address] [place] [address] * Lamotrigine level (08/16/2024 3:13 PM EST) Lamotrigine (Lamictal) Level 7.3 2.0 - 15.0 ug/mL 08/19/2024 11:11 AM EST [facility] Comment: Lamotrigine toxic level: ??>20 ug/mL The reference range is not well established. It may be as wide as 1 - 20 ug/mL. If applicable, any drug confirmation testing reported here was developed and the performance characteristics determined by [facility]. This confirmation testing has not been cleared or approved by the FDA. The laboratory is regulated under CLIA as qualified to perform high-complexity testing. This test is used for patient testing purposes. It should not be regarded as investigational or for research. Test performed at [facility], [address] , [place], [place] [address] ? [phone] Angelina Toscano MD, PhD - Grader Tender Blood Venous blood specimen / Unknown Venipuncture / Unknown 08/16/2024 3:13 PM EST 08/16/2024 3:13 PM EST Ashley LOPEZ LAB BLOOD ORDERABLES Final R esult [facility] [address] [place] [address] from Last 3 Months Insurance MEDICA[place] - [place] Care Teams Chief Clerk Shelter Relationship Specialty Start Date End Date Physician, Pcp Unknown PCP - General 10/05/24
--- OUTSIDE RECORDS SUMMARY | 2024-10-23 15:37 | XMS_ITS | Encounter Summary ---
Author Organization [employer] Address [address] [place] [address] Care Team Providers Care Disease And Insect Control Boss Name Role Phone Terra Gonzalez MD Primary Care Provider + Reason for Visit * Reason Comments Med Refill Encounter Details Date Type Department Care Team ([facility] Contact Info) Description 09/13/2024 Refill [facility] [address] [place], [place] [phone] Terra Gonzalez MD [address] [place] [address] Social History Tobacco Use Types Packs/Day Years Used Date Smoking Tobacco: Never Smokeless Tobacco: Never Alcohol Use Standard Drinks/Week Comments Never 0 (1 standard drink = 0.6 oz pur e alcohol) Housing Stability Answer Date Recorded What is your housing situation today? I have shahnazedward taylor 08/05/[address] you [...] the past 12 months, has t he [employer], gas, oil or water company threatened to [...] Description 12/05/2024 9:45 AM EDT Office Visit [facility] [address] [place] [phone] Terra Gonzalez MD [address] [place] [phone] documented as of this encounter Visit Diagnoses Not on filedocumented in this encounter Care Teams Disease And Insect Control Boss Relationship Specialty Start Date End Date Terra Gonzalez MD [address] [place] [phone] PCP - General Internal Medicine 08/19/24 documented as of this encounter
[2024-10-23 17:19] LABS: Bacterial Vaginosis PCR POSITIVE (Negative); Candida Group PCR NOT DETECTED (Not Detect); Candida glab krusei PCR NOT DETECTED (Not Detect); Trichomonas vaginalis PCR NOT DETECTED (Not Detect)
[2024-10-24 06:53] LABS: CT PCR NOT DETECTED (Not Detect.); NG PCR NOT DETECTED (Not Detect.)
[2024-10-30 14:59] LABS: HPV Genotype 16 Negative (Negative); HPV Genotype 18 Negative (Negative); HPV High Risk Negative (Negative)
== END 2024-10-23 14:15 | disposition home or self-care (01) ==
LOC: HO.HHCLNP 14:14
PROVIDERS: Visit Provider Internal Medicine
DX: Z01.419 Encounter for gynecological examination (general) (routine) without abnormal findings (principal)
CPT/HCPCS: 81515; 87491; 87591; 87626; 88175

== ENCOUNTER 2024-11-19 08:53 | Outpatient (REF) | payer MEDICAID, SELFPAY ==
--- NOTE | ~2024-11-19 | XR_ITS ---
EXAMINATION: XR THORACIC SPINE CLINICAL INFORMATION: PAIN, chronic ongoing. COMPARISON: None available. TECHNIQUE: 3 views of the thoracic spine were obtained. FINDINGS: There is an S-shaped thoracic scoliosis, with superior component convex to the left, apex at T4. Maximal Quiroz angle estimated at 22 degrees. Inferior component is convex to the right, apex at T10. Maximum Quiroz angle is estimated at 21 degrees. There is a normal kyphosis. No fractures, compression deformity, or vertebral body anomalies. No suspicious bone lesions. Disc spaces appear preserved. Facets appear normally aligned. Imaged soft tissues, mediastinal contents and lungs appear normal. XR/XR thoracic spine 2V IMPRESSION: 1. S-shaped thoracolumbar scoliosis as described. 2. Otherwise normal examination. Electronically signed by: Vargas Zuleta MD 11/19/2024 09:15 AM EDT
--- OUTSIDE RECORDS SUMMARY | 2024-11-19 09:46 | XMS_ITS | Clinical Summary ---
Author Organization 175 [facility] Address [address] [place] [phone] Phone Care Team Providers Care Coverstitch Binder Name Role Phone Physician, Pcp Unknown Primary Care Provider Maribel vailable Medications ibuprofen-aceta minophen 125-250 mg tablet Take 600 mg by mouth. 4 Active lamoTRIgine (LaMICtal) 150 mg tablet 1 po qd in the morning 30 each 5 5 Active lamoTRIgine (LaMICtal) 200 mg tablet 1 po hs 30 tablet 5 5 Active levETIRAcetam (KEPPRA) 500 mg tablet Take 1 tablet (500 mg total) by mouth 2 (two) times a day. 60 each 5 5 05/12/20 25 Active lamoTRIgine (LaMICtal) 150 mg tablet Take 1 tablet (150 mg total) by mouth 2 (two) times a day. 60 each 5 5 10/31/19 25 Discontinu ed(Reorder ) levETIRAcetam (KEPPRA) 500 mg tablet Take 1 tablet (500 mg total) by mouth 2 (two) times a day. 60 each 5 5 11/14/19 25 Discontinu ed(Reorder ) Active Problems No known active problems Encounters Date Type Department Care Team Description 10/31/2024 10:30 AM EST Office Visit [facility] [address] [place] [address] Ashley Meeks PA Seizure (CMS/HCC) (Primary Dx) 10/31/2024 Lab Requisition [facility] - Main Lab [address] [place] [address] Terra Gonzalez MD Epilepsy, unspecified, not intractable, without status epilepticus (CMS/HCC); Acute nasopharyngitis (common cold); Headache, unspecified; Other chronic pain 10/05/2024 8:12 AM EST - 10/05/2024 9:07 AM EST Emergency [facility] Emergency [address] [place] [address] Adarsh Westbrook MD Chest pain, unspecified type (Primary Dx) Discharge Disposition: Home or Self Care from Last 3 Months Surgical History Surgery [...] Sign Reading Time Taken Comments Blood Pressure 95/62 10/31/2024 10:52 AM EST Pulse 95 10/31/2024 10:52 AM EST Temperature 36.4 ??C (97.6 ??F) [...] Care Team (Late st Contact Info) Description 01/09/2025 1:00 PM EDT Office Visit [facility] [address] [place] [address] Gilberto Wood MD [address] [facility] [address] [place] [address] Health Maintenance Due Date Last Done Comments Hepatitis B Vaccines (1 of 3 - 19+ 3-dose series) 2011 Influenza Vaccine (#1) 2024 Depression Screening 06/19/2024 Social Influencers of Health Screening 06/19/2024 Cervical Cancer Screening: P ap Smear 10/23/2027 10/23/2024 Cholesterol Screening (Lipid Panel) 10/31/2029 10/31/2024 DTaP,Tdap,and Td Vaccines (2 - Td or Tdap) 05/05/2034 05/05/2024 COVID-19 Vaccine Completed 10/23/2024 HIV Screening Completed 10/31/2024 Hepatitis C Screening Completed 10/31/2024 HIB Vaccines Aged Out No longer eligi [...] Procedure Name Priority Date/Time Associated Diagnosis Comments SST - GOLD Routine 10/31/2024 11:15 AM EST Epilepsy, unspecified, not intractable, without status epilepticus (CMS/HCC) Acute nasopharyngitis (common cold) Headache, unspecified Other chronic pain CBC WITH AUTO DIFFERENTIAL Routine 10/31/2024 11:15 AM EST Epilepsy, unspecified, not intractable, without status epilepticus (CMS/HCC) Acute nasopharyngitis (common cold) Headache, unspecified Other chronic pain LIPID PANEL WITH REFLEX TO DIRECT LDL Routine 10/31/2024 11:15 AM EST Epilepsy, unspecified, not intractable, without status epilepticus (CMS/HCC) Acute nasopharyngitis (common cold) Headache, unspecified Other chronic pain CBC AND DIFFERENTIAL Routine 10/31/2024 11:15 AM EST Epilepsy, unspecified, not intractable, without status epilepticus (CMS/HCC) Acute nasopharyngitis (common cold) Headache, unspecified Other chronic pain THYROID STIMULATING HORMONE WITH REFLEX TO FREE T4 AND FREE T3 Routine 10/31/2024 11:15 AM EST Epilepsy, unspecified, not intractable, without status epilepticus (CMS/HCC) Acute nasopharyngitis (common cold) Headache, unspecified Other chronic pain HIV 1, 2 ANTIBODY, P24 ANTIGEN WITH REFLEX TO DIFFERENTIATION Routine 10/31/2024 11:15 AM EST Epilepsy, unspecified, not intractable, without status epilepticus (CMS/HCC) Acute nasopharyngitis (common cold) Headache, unspecified Other chronic pain TREPONEMA PALLIDUM ANTIBODY WITH REFLEX TO RPR AND PARTICLE AGGLUTINATION Routine 10/31/2024 11:15 AM EST Epilepsy, unspecified, not intractable, without status epilepticus (CMS/HCC) Acute nasopharyngitis (common cold) Headache, unspecified Other chronic pain COMPREHENSIVE METABOLIC PANEL Routine 10/31/2024 11:15 AM EST Epilepsy, unspecified, not intractable, without status epilepticus (CMS/HCC) Acute nasopharyngitis (common cold) Headache, unspecified Other chronic pain HEPATITIS PANEL, ACUTE WITH REFLEX TO CONFIRMATION Routine 10/31/2024 11:15 AM EST Epilepsy, unspecified, not intractable, without status epilepticus (CMS/HCC) Acute nasopharyngitis (common cold) Headache, unspecified Other chronic pain TROPONIN I HIGH SENSITIVITY STAT 10/05/2024 2:49 [...] 10/05/2024 1:39 AM EST ECG ANNOTATED 10/05/2024 from Last 3 Months Results * HIV 1,2 antibody, p24 antigen with reflex to differentiation (10/31/2024 11:15 AM EST) HIV Combo AB/AG Negative Negative LAB CHEMISTRY METHOD 10/31/2024 3:28 PM EST [facility] Blood Venous blood specimen / Unknown 10/31/2024 11:15 AM EST 10/31/2024 2:24 PM EST Narrative [facility] - 10/31/2024 3:28 PM EST This assay is a 4th generation assay allowing for earlier detection of HIV infection by detecting the presence of the HIV-1 p24 antigen as well as the traditional antibodies to HIV type 1 (including group O) and type 2. ??Use of a 4th generation assay is the current CDC recommendation for HIV screening. us Terra Gonzalez MD LAB BLOOD ORDERABLES Final R esult Performing Organization Address [facility] Co de Phone Number [facility] [address] [place] [address], [place] [phone] * Treponema pallidum antibody with reflex to RPR and particle agglutination (10/31/2024 11:15 AM EST) T. Pallidum Antibodies Negative Negative LAB CHEMISTRY METHOD 10/31/2024 2:59 PM EST [facility] Blood Venous blood specimen / Unknown 10/31/2024 11:15 AM EST 10/31/2024 2:24 PM EST us Terra Gonzalez MD LAB BLOOD ORDERABLES Final R esult Performing Organization Address [facility] Co de Phone Number [facility] [address] [place] [address], [place] [phone] * Thyroid stimulating hormone with reflex to free t4 and free t3 (10/31/2024 11:15 AM EST) TSH 1.33 0.40 - 4.00 mcIU/mL LAB CHEMISTRY METHOD 10/31/2024 2:49 PM EST [facility] Blood Venous blood specimen / Unknown 10/31/2024 11:15 AM EST 10/31/2024 2:24 PM EST us Terra Gonzalez MD LAB BLOOD ORDERABLES Final R esult Performing Organization Address City/[facility]/ZIP Co de Phone Number [facility] [address] [place] [address], [place] [phone] * SST tube (10/31/2024 11:15 AM EST) [facility] Extra Tube Hold for add-ons. 10/31/2024 4:01 PM EST [facility] Comment:Auto resulted. Blood Venous blood specimen / Unknown 10/31/2024 11:15 AM EST 10/31/2024 2:24 PM EST us Terra Gonzalez MD LAB BLOOD ORDERABLES Final R esult [facility] [address] [place] [address], [place] [phone] * (ABNORMAL) Lipid panel with reflex to direct LDL (10/31/2024 11:15 AM EST) [facility] Cholesterol 175 0 - 200 mg/dL LAB CHEMISTRY METHOD 10/31/2024 2:44 PM [facility] Triglycerides 67 0 - 150 mg/dL LAB CHEMISTRY METHOD 10/31/2024 2:44 PM [facility] HDL 60 >=40 mg/dL LAB CHEMISTRY METHOD 10/31/2024 2:44 PM [facility] LDL Calculated 102(H) 0 - 100 mg/dL LAB CHEMISTRY METHOD 10/31/2024 2:44 PM [facility] VLDL Cholesterol Narinder 13.4 mg/dL LAB CHEMISTRY METHOD 10/31/2024 2:44 PM [facility] Non HDL Chol. (LDL+VLDL) 115 <145 mg/dL LAB CHEMISTRY METHOD 10/31/2024 2:44 PM [facility] Chol/HDL Ratio 2.9 0.0 - 4.4 LAB CHEMISTRY METHOD 10/31/2024 2:44 PM [facility] Blood Venous blood specimen / Unknown 10/31/2024 11:15 AM EST 10/31/2024 2:24 PM EST us Terra Gonzalez MD LAB BLOOD ORDERABLES Final R esult [facility] [address] [place] [address], * Hepatitis panel, acute with reflex to confirmation (10/31/2024 11:15 AM EST) [facility] Hepatitis B Surface Ag Negative Negative LAB CHEMISTRY METHOD 10/31/2024 3:36 PM EST [facility] Hepatitis A Antibody IgM Negative Negative LAB CHEMISTRY METHOD 10/31/2024 3:36 PM EST [facility] Hep B Core IgM Negative Negative LAB CHEMISTRY METHOD 10/31/2024 3:36 PM EST [facility] Hepatitis C Antibody Negative Negative LAB CHEMISTRY METHOD 10/31/2024 3:36 PM EST [facility] Blood Venous blood specimen / Unknown 10/31/2024 11:15 AM EST 10/31/2024 2:24 PM EST Terra Gonzalez MD LAB BLOOD ORDERABLES Final R esult Performing Organization Address City/[facility]/ZIP Co de Phone Number [facility] [address] [place] [address], * (ABNORMAL) CBC auto differential (10/31/2024 11:15 AM EST) Only the most recent of2 resultswithin the time period is included. [facility] WBC 5.5 4.8 - 10.8 K/mcL LAB HEMETOLOGY METHOD 10/31/2024 2:32 PM EST [facility] RBC 4.60 3.80 - 4.80 M/mcL LAB HEMETOLOGY METHOD 10/31/2024 2:32 PM EST [facility] Hemoglobin 12.3 11.5 - 16.0 g/dL LAB HEMETOLOGY METHOD 10/31/2024 2:32 PM EST [facility] Hematocrit 40.0 35.0 - 47.0 % LAB HEMETOLOGY METHOD 10/31/2024 2:32 PM [facility] MCV 87.1 79.0 - 98.0 FL LAB HEMETOLOGY METHOD 10/31/2024 2:32 PM [facility] MCH 26.8(L) 27.0 - 32.0 pcg LAB HEMETOLOGY METHOD 10/31/2024 2:32 PM [facility] MCHC 30.8(L) 32.0 - 37.0 g/dL LAB HEMETOLOGY METHOD 10/31/2024 2:32 PM [facility] RDW 13.2 11.0 - 15.0 % LAB HEMETOLOGY METHOD 10/31/2024 2:32 PM [facility] Platelets 384 130 - 400 K/mcL LAB HEMETOLOGY METHOD 10/31/2024 2:32 PM [facility] MPV 9.9 7.0 - 11.0 FL LAB HEMETOLOGY METHOD 10/31/2024 2:32 PM [facility] NRBC 0.0 <1.0 % LAB HEMETOLOGY METHOD 10/31/2024 2:32 PM [facility] NRBC Absolute 0.00 <0.10 K/mcL LAB HEMETOLOGY METHOD 10/31/2024 2:32 PM [facility] Neutrophils Relative 70.0 % LAB HEMETOLOGY METHOD 10/31/2024 2:32 PM [facility] Lymphocytes Relative 15.6 % LAB HEMETOLOGY METHOD 10/31/2024 2:32 PM [facility] Monocytes Relative 9.8 % LAB HEMETOLOGY METHOD 10/31/2024 2:32 PM [facility] Eosinophils Relative 4.0 % LAB HEMETOLOGY METHOD 10/31/2024 2:32 PM [facility] Basophils Relative 0.4 % LAB HEMETOLOGY METHOD 10/31/2024 2:32 PM EST [facility] Immature Granulocytes Relative 0.2 % LAB HEMETOLOGY METHOD 10/31/2024 2:32 PM [facility] Neutrophils Absolute 3.85 1.50 - 7.00 K/mcL LAB HEMETOLOGY METHOD 10/31/2024 2:32 PM [facility] Lymphocytes Absolute 0.86(L) 1.00 - 5.00 K/mcL LAB HEMETOLOGY METHOD 10/31/2024 2:32 PM EST [facility] Monocytes Absolute 0.54 0.20 - 1.00 K/mcL LAB HEMETOLOGY METHOD 10/31/2024 2:32 PM [facility] Eosinophils Absolute 0.22 0.00 - 0.50 K/mcL LAB HEMETOLOGY METHOD 10/31/2024 2:32 PM EST [facility] Basophils Absolute 0.02 0.00 - 0.20 K/mcL LAB HEMETOLOGY METHOD 10/31/2024 2:32 PM [facility] Immature Granulocytes Absolute 0.01 0.00 - 0.03 K/mcL LAB HEMETOLOGY METHOD 10/31/2024 2:32 PM EST [facility] Blood Venous blood specimen / Unknown 10/31/2024 11:15 AM EST 10/31/2024 2:24 PM EST us Terra Gonzalez MD LAB BLOOD ORDERABLES Final R esult [facility] [address] [place] [address], * Comprehensive metabolic panel (10/31/2024 11:15 AM EST) Only the most recent of2 resultswithin the time period is included. Sodium 138 133 - 145 mmol/L LAB CHEMISTRY METHOD 10/31/2024 2:44 PM [facility] Potassium 3.9 3.5 - 5.5 mmol/L LAB CHEMISTRY METHOD 10/31/2024 2:44 PM [facility] Chloride 105 96 - 110 mmol/L LAB CHEMISTRY METHOD 10/31/2024 2:44 PM [facility] CO2 28 21 - 32 mmol/L LAB CHEMISTRY METHOD 10/31/2024 2:44 PM [facility] Anion Gap 5 3 - 11 LAB CHEMISTRY METHOD 10/31/2024 2:44 PM [facility] Glucose 74 70 - 100 mg/dL LAB CHEMISTRY METHOD 10/31/2024 2:44 PM [facility] BUN 11 5 - 25 mg/dL LAB CHEMISTRY METHOD 10/31/2024 2:44 PM [facility] Creatinine 0.89 0.50 - 1.10 mg/dL LAB CHEMISTRY METHOD 10/31/2024 2:44 PM [facility] eGFR 88 >=60 mL/min/1. 73m2 LAB CHEMISTRY METHOD 10/31/2024 2:44 PM [facility] Comment:Calculation based on the??Chronic Kidney Disease Epidemiology Collaboration (CKD-EPI) equation refit??without adjustment for race. BUN/Creatinine Ratio 12.4 LAB CHEMISTRY METHOD 10/31/2024 2:44 PM [facility] Calcium 9.5 8.5 - 10.5 mg/dL LAB CHEMISTRY METHOD 10/31/2024 2:44 PM [facility] AST (SGOT) 14 10 - 42 unit/L LAB CHEMISTRY METHOD 10/31/2024 2:44 PM [facility] ALT (SGPT) 15 10 - 60 unit/L LAB CHEMISTRY METHOD 10/31/2024 2:44 PM [facility] Alkaline Phosphatase 64 42 - 121 unit/L LAB CHEMISTRY METHOD 10/31/2024 2:44 PM EST [facility] Total Protein 7.8 6.0 - 8.0 g/dL LAB CHEMISTRY METHOD 10/31/2024 2:44 PM EST [facility] Albumin 4.2 3.2 - 5.0 g/dL LAB CHEMISTRY METHOD 10/31/2024 2:44 PM EST [facility] Total Bilirubin 0.5 0.0 - 1.4 mg/dL LAB CHEMISTRY METHOD 10/31/2024 2:44 PM EST [facility] Blood Venous blood specimen / Unknown 10/31/2024 11:15 AM EST 10/31/2024 2:24 PM EST Terra Gonzalez MD LAB BLOOD ORDERABLES Final R esult Performing Organization Address City/[facility]/ZIP Co de Phone Number [facility] [address] [place] [address], [place] [phone] * Troponin I high sensitivity (10/05/2024 2:49 AM EST) Only the most recent of2 resultswithin the time period is included. Pathologist [facility] High Sensitivity Troponin I <3 <=54 ng/L LAB CHEMISTRY METHOD 10/05/2024 4:46 AM EST [facility] Blood Venous blood specimen / Unknown Venipuncture / Unknown 10/05/2024 2:49 AM EST 10/05/2024 3:08 AM EST Narrative [facility] - 10/05/2024 4:46 AM EST High levels of biotin in samples may falsely decrease hsTroponin values. ??Use caution when interpreting hsTroponin results in patients taking biotin who exhibit renal impairment (eGFR <60) or in patients taking more than 20 mg/day of biotin. us Alissa Huff MD LAB BLOOD ORDERABLES Fin al Result [facility] [address] [place] [address], [place] [phone] * XR Chest 2 Views (10/05/2024 2:06 AM EST) Anatomical Region Laterality Modality Body Radiographic Velvet ging 10/05/2024 8:34 AM EST Impressions 10/05/2024 8:35 AM EST Impression: No active pulmonary process identified. Telerad PA ([id number]) -------- FINAL REPORT -------- Dictated By: Jeni Garland Dictated Date: 10/05/2024 08:34 ET Assigned Physician: Jeni Garland Reviewed and Electronically Signed By: Jeni Garland Signed Date: 10/05/2024 08:35 ET Workstation ID: [id number] Transcribed By: Self Edit Transcribed Date: 10/05/2024 [...] No active pulmonary process identified. [employer]eler[employer] JESSICA ([id number]) -------- FINAL REPORT -------- Dictated By: Jeni Garland Dictated Date: 10/05/2024 08:34 ET Assigned Physician: Jeni Garland Reviewed and Electronically Signed By: Jeni Garland Signed Date: 10/05/2024 08:35 ET Workstation ID: [id number] Transcribed By: Self Edit Transcribed Date: 10/05/2024 08:34 ET Alissa Huff MD IMG XR PROCEDURES Final Result * B-type natriuretic peptide (10/05/2024 1:51 AM EST) BNP 10 <=100 pcg/mL LAB CHEMISTRY METHOD 10/05/2024 3:03 AM EST [facility] Blood Venous blood specimen / Unknown Venipuncture / Unknown 10/05/2024 1:51 AM EST 10/05/2024 2:24 AM EST Alissa Huff MD LAB BLOOD ORDERABLES Fin al Result Performing Organization Address [facility]/ZIP Co de Phone Number [facility] [address] [place] [address], * Magnesium (10/05/2024 1:51 AM EST) [facility] Magnesium 2.1 1.9 - 2.6 mg/dL LAB CHEMISTRY METHOD 10/05/2024 2:57 AM EST [facility] Blood Venous blood specimen / Unknown Venipuncture / Unknown 10/05/2024 1:51 AM EST 10/05/2024 2:24 AM EST Alissa Huff MD LAB BLOOD ORDERABLES Fin al Result [facility] [address] [place] [address], [place] [phone] * Lipase (10/05/2024 1:51 AM EST) Lipase 63 13 - 75 unit/L LAB CHEMISTRY METHOD 10/05/2024 2:57 AM EST [facility] Blood Venous blood specimen / Unknown Venipuncture / Unknown 10/05/2024 1:51 AM EST 10/05/2024 2:24 AM EST Alissa Huff MD LAB BLOOD ORDERABLES Fin al Result Performing Organization Address City/[facility]/ZIP Co de Phone Number [facility] [address] [place] [address], [place] [phone] * ECG 12 lead (10/05/2024 1:39 AM EST) Ventricular Rate ECG 111 BPM GEMUSE Atrial Rate 111 BPM GEMUSE P-R Interval 128 ms GEMUSE QRS Duration 86 ms GEMUSE Q-T Interval 344 ms GEMUSE QTc 467 ms GEMUSE P Wave [place] 1 degrees GEMUSE R [place] 43 degrees GEMUSE T [place] 18 degrees GEMUSE ECG Interpretation Sinus tachycardia Otherwise normal ECG No previous ECGs available Confirmed by AVELINA DON ([id number]) on 10/05/2024 4:50:21 PM GEMUSE 10/05/2024 1:39 AM EST 10/05/2024 4:50 PM EST Alissa Huff MD ECG ORDERABLES Final Re sult GEMUSE * ECG-Annotated (10/05/2024) Provider Onbase ECG ORDERABLES Final Result from Last 3 Months Insurance [place]ICA[place] Care Teams Coverstitch Binder Relationship Specialty Start Date End Date Physician, Pcp Unknown PCP - General 10/05/24
--- OUTSIDE RECORDS SUMMARY | 2024-11-19 09:46 | XMS_ITS | Encounter Summary ---
Author Organization [employer] Address [address] [place] [address] [address], [place] [address] Care Team Providers Care Equipment Driver Name Role Phone Terra Gonzaelz MD Primary Care Provider + Reason for Referral * Consultation (Routine) - Closed Specialty Diagnoses / Procedures Referred By Tj wilburn Referred To Contact Behavioral Health Diagnoses Adjustment disorder with anxious mood Terra Gonzalez MD [address] [place] [address] Phone: tel: fax: Referral ID Status Reason Start Date Expiration Date V isits Requested Visits Authorized [id number] Closed Specialty Services Required 10/23/2024 10/23/2025 1 1 * Consultation (Routine) - Closed Specialty Diagnoses / Procedures Referred By Tj wilburn Referred To Contact Physical Therapy Diagnoses Upper back pain Terra Gonzalez MD [address] [place] [address] Phone: tel: fax: Physical Therapy, [facility] [address] [place], [place] Phone: tel: fax: Referral ID Status Reason Start Date Expiration Date V isits Requested Visits Authorized [id number] Closed Specialty Services Required 10/24/2024 10/24/2025 20 20 Reason for Visit * Reason Comments Gynecologic Exam Encounter Details Date Type Department Care Team (Latest Contact Info) Description 10/23/2024 9:15 AM EST Procedure Visit [facility] [address] [facility] [place] [address] Terra Gonzalez MD [address] [facility] [place] [address] Encounter for cervical Pap smear with pelvic [...] the past 12 months, has t he [employer], gas, oil or water [employer] threatened to shut off services in your [...] for Pap smear. Patient was seen in [facility] ED on October 05 due to chest [...] recreational substance since. Records from neurology in [place] showed an MRI of the brain in [...] uses IUD for control, placedon 2021 in [place]. Denies vaginal discharge, pelvic pain, dyspareunia, dysuria. [...] Social History Social History Narrative ompleted HS +[employer] school. Lives with AMAB partner and 2 [...] 100% Physical Exam Exam conducted with a fan mail clerk present (Vibha Cuevas [place]). HENT: Right Ear: [...] RNA, TMA, Urogenitial Pap Smear Seizure disorder ([facility]) Patient had a recurrent seizure last month. Follow-up with Dr Wood from [facility] Continue Lamictal 850 mg twice daily Advise [...] Encounter for immunization Relevant Orders COVID-19 VACCINE (VoloMetrix) [id number] 12 yrs + (Completed) Adjustment disorder with [...] last month. Follow-up with Dr Wood from [employer] [facility] Continue Lamictal 850 mg twice daily Advise against driving for at least the next 6-month or until neurology clearance. Avoid to use recreational substances or alcohol documented in this encounter Plan of Treatment Upcoming Encounters Date Type Department Care Team (Late st Contact Info) Description 12/05/2024 9:45 AM EDT Office Visit [facility] [address] [place] [address] Terra Gonzalez MD [address] [place] [address] Scheduled Orders Name Type Priority Associated Diagnoses Orde r Schedule Bacterial Vaginosis Microbiology Routine Encounter for cervical Pap smear with pelvic exam Expected: 10/23/2024 (Approximate), Expires: 10/23/2025 Scheduled Referrals Name Type Priority Associated Diagnoses Order Schedule Referral to Physical Therapy Outpatient Referral Routine Upper back pain Expected: 10/23/2024 (Approximate), Expires: 10/23/2025 Referral to Behavioral Health Outpatient Referral Routine Adjustment disorder with anxious mood Expected: 10/23/2024 (Approximate), Expires: 10/23/2025 documented as of this encounter Procedures Procedure Name Priority Date/Time Associated Diagnosis Comments XR THORACIC SPINE 2 VIEWS Routine 11/19/2024 8:54 AM EDT Upper back pain CHLAMYDIA/N. GONORRHOEAE RNA, TMA, UROGENITAL Routine 10/23/2024 9:48 AM EST Encounter for cervical Pap smear with pelvic exam PAP SMEAR Routine 10/23/2024 9:48 AM EST Encounter for cervical Pap smear with pelvic exam documented in this encounter Results * XR Thoracic Spine 2 Views (11/19/2024 8:54 AM EDT) Anatomical Region Laterality Modality Spine, T-spine Radiographic Velvet ging 11/19/2024 8:54 AM EDT Narrative 11/19/2024 9:18 AM EDT ?[facility] ?[address] ?[place] [address] ?XRay Report ? Signed ? Patient: Lee,Oayra J ?MR#: [id number] ?? 512 ? : 1990 ?Acct:[id number] ? Age/Sex: 34 / F ?ADM Date: 11/19/24 ? Loc: HO.HHCX ? Attending Dr: Terra Gonzalez MD ? Ordering Physician: Terra Gonzalez MD ?? Date of Service: 11/19/24 ?? Procedure(s): XR thoracic spine 2V ?? Accession Number(s): [id number] ? cc: Terra Gonzalez MD ? EXAMINATION: ?? XR THORACIC SPINE ? CLINICAL INFORMATION: ?? PAIN, chronic ongoing. ? COMPARISON: ?? None available. ? TECHNIQUE: ?? 3 views of the thoracic spine were obtained. ? FINDINGS: ?? There is an S-shaped thoracic scoliosis, with superior component convex ?? to the left, apex at T4. Maximal Quiroz angle estimated at 22 degrees. ?? Inferior component is convex to the right, apex at T10. Maximum Quiroz ?? angle is estimated at 21 degrees. ? There is a normal kyphosis. No fractures, compression deformity, or ?? vertebral body anomalies. No suspicious bone lesions. ?? Disc spaces appear preserved. Facets appear normally aligned. ? Imaged soft tissues, mediastinal contents and lungs appear normal. ? XR/XR thoracic spine 2V ?? IMPRESSION: ?? 1. S-shaped thoracolumbar scoliosis as described. ?? 2. Otherwise normal examination. ? Electronically signed by: ??Vargas Zuleta MD ??11/19/2024 09:15 AM EDT RP ? Dictated By: ?Vargas Zuleta MD ? Signed By: ?<Electronically signed by Vargas Zuleta MD in OV> ?11/19/24 0915 ? DD/ 0854 ? TD/TT: 11/19/24 0900 ? Molded Candles Wicker: ? Procedure Note Donotkathyinterpreter, Image - 11/19/[address] [address] XRay Report Signed Patient: Juan Carlos Howard JMR#: [id number] 512 : 1990Acct:[id number] Age/Sex: 34 / FADM Date: 11/19/24 Loc: .HHCX Attending Dr: Terra Gonzalez MD Ordering Physician: Terra Gonzalez MD Date of Service: 11/19/24 Procedure(s): XR thoracic spine 2V Accession Number(s): [id number] cc: Terra Gonzalez MD EXAMINATION: XR THORACIC SPINE CLINICAL INFORMATION: PAIN, chronic ongoing. COMPARISON: None available. TECHNIQUE: 3 views of the thoracic spine were obtained. FINDINGS: There is an S-shaped thoracic scoliosis, with superior component convex to the left, apex at T4. Maximal Quiroz angle estimated at 22 degrees. Inferior component is convex to the right, apex at T10. Maximum Quiroz angle is estimated at 21 degrees. There is a normal kyphosis. No fractures, compression deformity, or vertebral body anomalies. No suspicious bone lesions. Disc spaces appear preserved. Facets appear normally aligned. Imaged soft tissues, mediastinal contents and lungs appear normal. XR/XR thoracic spine 2V IMPRESSION: 1. S-shaped thoracolumbar scoliosis as described. 2. Otherwise normal examination. Electronically signed by: Vargas Zuleta MD 11/19/2024 09:15 AM EDT Dictated By: Vargas Zuleta MD Signed By: <Electronically signed by Vargas Zuleta MD in OV> 11/19/2415 DD/ 3 TD/TT: 11/19/24899 Molded Candles Wicker: us Terra Gonzalez MD IMG XR PROCEDURES Final Result * Pap Smear (10/23/2024 9:48 AM EST) Swab Cervix uteri structure / Unknown 10/23/2024 9:48 AM EST 10/24/2024 6:10 AM EST [place] [facility] - 10/29/2024 9:20 AM EST ----- ------- Name: Juan Carlos Howard ?Age/Sex: 34/F ? : 1990 Unit#: [id number] ?? Attend Dr: Terra Gonzalez MD ?Re10/23/24 ?Status: DEP REF ? Location: HO.HHCLNP ? Disch: ? ----- ------- SPEC : [id number] ? RECD: 10/24/24-609 ? STATUS: ??SOUT ? REQ NUM: [id number] ? LUIS: 10/23/24-947 ? SUBM DR: Terra Gonzalez MD ? ENTERED: ??10/24/24-644 ?SP TYPE: Pap Smr ?OTHR : ? ORDERED: ??Pap Smear ? Interpretation ?? Satisfactory for evaluation. ?? Negative for intraepithelial lesion or malignancy. ? HPV High Risk: ??Negative ? HPV Genotyping 16: ??Negative ?? HPV Genotyping 18: ??Negative ?Clinical Information LMP:09/26/24 Previous PAP test: Other surgery: Other history: IUD ? Material Received ?? ThinPrep-Cervical ----- ------- Signed (signature on file) GISELA Jorge (ASCP) 10/29/24 0920 ? ----- ------- ? END OF REPORT ? Terra Gonzalez MD LAB CYTOLOGY ORDERABLES Final Result [facility] [address] [place] [address] [phone] * Chlamydia/N. Gonorrhoeae RNA, TMA, Urogenitial (10/23/2024 9:48 AM EST) CT PCR NOT DETECTED Not Detect. [facility] Comment:A not detected test result does not exclude the possibilityof infection because test results can be affected byimproper specimen collection, concurrent antibiotic therapy,or the number of organisms in the specimen which may bebelow the sensitivity of the test. As with many diagnostictests, results from the Xpert CT/NG assay should beinterpreted in conjunction with other laboratory andclinical data available to the clinician.Xpert CT/NG performance has not been evaluated in patientsless than 14 years of age. The assay should not be used forthe evaluationof suspected sexual abuse or for other medico-legalindications. Additional testing is recommended in anycircumstance when false positive or false negative resultscould lead to adverse medical, social or psychologicalconsequences. NG PCR NOT DETECTED Not Detect. [facility] Comment:A not detected test result does not exclude the possibilityof infection because test results can be affected byimproper specimen collection, concurrent antibiotic therapy,or the number of organisms in the specimen which may bebelow the sensitivity of the test. As with many diagnostictests, results from the Xpert CT/NG assay should beinterpreted in conjunction with other laboratory andclinical data available to the clinician.Xpert CT/NG performance has not been evaluated in patientsless than 14 years of age. The assay should not be used forthe evaluationof suspected sexual abuse or for other medico-legalindications. Additional testing is recommended in anycircumstance when false positive or false negative resultscould lead to adverse medical, social or psychologicalconsequences. Swab Vaginal structure / Unknown 10/23/2024 9:48 AM EST 10/23/2024 2:12 PM EST Narrative [facility] - 10/24/2024 6:54 AM EST Vaginal Terra Gonzalez MD LAB MICROBIOLOGY - GENER AL ORDERABLES Final Result Performing Organization Address City/State/[facility] Co de Phone Number [facility] [address] [place] [address] [phone] documented in this encounter Visit Diagnoses Diagnosis Encounter for cervical Pap smear with pelvic exam- Primary Seizure disorder (CMS/HCC) Unspecified epilepsy without mention of intractable epilepsy Acute pain of left knee Upper back pain Unspecified backache IUD (intrauterine device) in place Presence of intrauterine contraceptive device Encounter for immunization Adjustment disorder with anxious mood Adjustment disorder with anxiety documented in this encounter Care Teams Equipment Driver Relationship Specialty Start Date End Date Terra Gonzalez MD [address] [place] [phone] PCP - General Internal Medicine 08/19/24 documented as of this encounter
--- OUTSIDE RECORDS SUMMARY | 2024-11-19 09:46 | XMS_ITS | Encounter Summary ---
Author Organization [employer] Address [address] [facility] [address] [place] [address] Care Team Providers Care Cook Pressure Name Role Phone Terra Gonzalez MD Primary Care Provider + Reason for Visit * Reason Onset Date Comments Chart prep 10/21/2024 Encounter Details Date Type Department Care Team ([facility] st Contact Info) Description 10/21/2024 Telephone [facility] [address] [place], [place] [phone] Terra Gonzalez MD [address] [place] [address] Chart prep Social History Tobacco Use Types [...] Description 12/05/2024 9:45 AM EDT Office Visit [facility] [address] [place] [address] Terra Gonzalez MD [address] [place] [phone] documented as of this encounter Visit Diagnoses Not on filedocumented in this encounter Care Teams Cook Pressure Relationship Specialty Start Date End Date Terra Gonzalez MD [address] [place] [address] PCP - General Internal Medicine 08/19/24 documented as of this encounter
--- OUTSIDE RECORDS SUMMARY | 2024-11-19 09:46 | XMS_ITS | Clinical Summary ---
Author Organization [employer] Address [address] [facility] [address] [place] [address] Care Team Providers Care Special Projects Manager Name Role Phone Terra Gonzalez MD Primary Care Provider + Allergies No known active allergies Medications * This document contains information received from the source organization and may not represent a complete record from that organization. lamoTRIgine (LaMICtal) 100 MG tabletIndicatio ns:Absence Seizure [...] days. 15 tablet 5 11/07/19 25 Active Problems Problem Noted Date Diagnosed Date [...] last month. Follow-up with Dr Wood from [email or web address] Continue Lamictal 850 mg twice daily Advise against driving for at least the next 6-month or until neurology clearance. Avoid to use recreational substances or alcohol Assessment & Plan (08/19/2024 12:16 PM EST): It seems to be absence seizures? Will obtain notes from Dr Wood from [email or web address] Continue Lamictal and Kepra same dose Advised [...] smear with me, will check IUD. Encounters * This document contains information received from the source organization and may not represent a complete record from that organization. Date Type Department Care Team Description 10/23/2024 9:15 AM EST Procedure Visit [address] [address] Terra Gonzalez MD Encounter for cervical Pap smear with pelvic exam (Primary Dx); Seizure disorder (CMS/HCC); Acute pain of left knee; Upper back pain; IUD (intrauterine device) in place; Encounter for immunization; Adjustment disorder with anxious mood 10/23/2024 Orders Only [address] [address] Terra Gonzalez MD 10/23/2024 Travel 10/21/[address] [address] Terra Gonzalez MD Chart prep 09/13/[address] [address] Terra Gonzalez MD 08/27/[address] [address] Terra Gonzalez MD October recall from Last 3 Months Immunizations Name Administration [...] Description 12/05/2024 9:45 AM EDT Office Visit [facility] [address] [place] [address] Terra Gonzalez MD [address] [place] [address] Health Maintenance Due Date Last Done Comments HIV Screening 1990 Alcohol/Substance Use Screening 2004 Hepatitis C Screening 2010 Hepatitis B Vaccines (1 of 3 - 19+ 3-dose series) 2011 Influenza Vaccine (#1) 2024 Depression Screening 08/19/2025 08/19/2024, 08/19/2024 Family Planning (PISQ) 08/19/2025 08/19/2024 SDOH Screening 08/19/2025 08/19/2024 Tobacco Screening 10/23/2025 10/23/2024 Cervical Cancer Screening 10/23/2029 HPV/Cotest 10/23/2029 10/23/2024 Pap Smear 10/23/2029 10/23/2024 DTaP/Tdap/Td Vaccines (2 - T d [...] 11/19/2024 8:54 AM EDT Upper back pain PAP SMEAR Routine 10/23/2024 9:48 AM EST Encounter for cervical Pap smear with pelvic exam HPV DNA, LOW/HIGH RISK Routine 10/23/2024 9:48 AM EST BACTERIAL VAGINOSIS PANEL Routine 10/23/2024 9:48 AM EST CHLAMYDIA/N. GONORRHOEAE RNA, TMA, UROGENITAL Routine 10/23/2024 9:48 AM EST Encounter for cervical Pap smear with pelvic exam from Last 3 Months Results * XR Thoracic Spine 2 Views (11/19/2024 8:54 AM EDT) Anatomical Region Laterality Modality Spine, T-spine Radiographic Velvet ging 11/19/2024 8:54 AM EDT Narrative 11/19/2024 9:18 AM EDT ?[facility] ?[address] ?[place] [address] ?XRay Report ? Signed ? Patient: Lee,Oayra J ?MR#: [id number] ?? 512 ? : 1990 ?Acct:[id number] ? Age/Sex: 34 / F ?ADM Date: 11/19/24 ? Loc: HO.HHCX ? Attending Dr: Terra Gonzalez MD ? Ordering Physician: Terra Gonzalez MD ?? Date of Service: 11/19/24 ?? Procedure(s): XR thoracic spine 2V ?? Accession Number(s): [id number] ? cc: Terra Gonzalez MD ? EXAMINATION: [...] DD/ 0854 ? TD/TT: 11/19/24 0900 ? Dross Skimmer: ? Procedure Note Donsooter, Image - 11/19/[address] [address] XRay Report Signed Patient: Juan Carlos Howard JMR#: [id number] 512 : 1990Acct:[id number] Age/Sex: 34 / FADM Date: 11/19/24 [facility]: eTrra Gonzalez MD Ordering Physician: Terra Gonzalez MD Date of Service: 11/19/24 Procedure(s): XR thoracic spine 2V Accession Number(s): [id number] cc: Terra Gonzalez MD EXAMINATION: XR THORACIC [...] signed by Vargas Zuleta MD in OV> 11/19/24 0915 DD/ 0854 TD/TT: 11/19/24 0900 Dross Skimmer: us Terra Gonzalez MD IMG XR PROCEDURES Final Result * (ABNORMAL) Bacterial Vaginosis (10/23/2024 9:48 AM EST) TRICHOMONAS VAGINALIS DETECTION BY PCR NOT DETECTED Not Detect [facility] BACTERIAL VAGINOSIS DETECTION BY PCR POSITIVE(A) Negative [facility] Comment:The BV organism targ ets of the Xpert Xpress MVP test can becommensal in women; Xpert Xpress MVP positive results forbacterial vaginosis should be considered in conjunction withother clinical and patient information to determine thedisease status. Organisms that are not detected by the XpertXpress MVP test have also been reported to be associatedwith BV and aerobic vaginitis.The Xpert Xpress MVP test performance has not been evaluatedin patients under the age of 14. JANE GROUP DETECTION BY PCR NOT DETECTED Not Detect [facility] Jane glab krusei PCR NOT DETECTED Not Detect [facility] 10/23/2024 9:48 AM EST 10/23/2024 2:13 PM EST us Terra Gonzalez MD LAB MICROBIOLOGY - GENER AL ORDERABLES Final Result [facility] [address] [place] [phone] * HPV DNA, Low/High Risk (10/23/2024 9:48 AM EST) HPV High Risk Negative Negative [facility] HPV Genotype 16 Negative Negative [facility] HPV Genotype 18 Negative Negative [facility] Comment:HPV testing performe d at [facility] (CLIA#[id number]), [address] [place] [address].Testing for HPV was performed using the [employer]0system. The presence of HPV in the female genital tract isassociated with a number of diseases, including cervicalcarcinoma. The HPV DNA high risk pool tests for HPV 31, 33,35, 39, 45, 51, 52, 56, 58, 59, 66 and 68. The testing forHPV 16 and 18 genotypes has also been performed. A positiveresult indicates detection of nucleic acid sequences fromone or more subtypes, whereas a negative result indicatessuch sequences were not detected. 10/23/2024 9:48 AM EST 10/24/2024 7:30 AM EST us Terra Gonzalez MD LAB BLOOD ORDERABLES Fin al Result [facility] [address] [place] [phone] * Chlamydia/N. Gonorrhoeae RNA, TMA, Urogenitial (10/23/2024 9:48 AM EST) Pathologist [facility] CT PCR NOT DETECTED Not Detect. [facility] Comment:A not detected test result does [...] psychologicalconsequences. NG PCR NOT DETECTED Not Detect. [facility] Comment:A not detected test result does [...] 9:48 AM EST 10/23/2024 2:12 PM EST [facility] - 10/24/2024 6:54 AM EST Vaginal Terra Gonzalez MD LAB MICROBIOLOGY - GENER AL ORDERABLES Final Result [facility] [address] [place] [phone] * Pap Smear (10/23/2024 9:48 AM EST) Swab Cervix uteri structure / Unknown 10/23/2024 9:48 AM EST 10/24/2024 6:10 AM EST [facility] - 10/29/2024 9:20 AM EST ----- ------- Name: Juan Carlos Howard ?Age/Sex: 34/F ? : 1990 Unit#: [id number] ?? Attend Dr: Terra Gonzalez MD ?Re10/23/24 ?Status: DEP REF ? Location: HO.CLNP ? Disch: ? ----- ------- SPEC : [id number] ? RECD: 10/24/24 ? STATUS: ??SOUT ? REQ NUM: [id number] ? LUIS: 10/23/24 ? SUBM DR: Terra Gonzalez MD ? ENTERED: ??10/24/24 ?SP TYPE: Pap Smr ?OTHR : ? ORDERED: ??Pap Smear ? Interpretation ?? Satisfactory for evaluation. ?? Negative for intraepithelial lesion or malignancy. ? HPV High Risk: ??Negative ? HPV Genotyping 16: ??Negative ?? HPV Genotyping 18: ??Negative ?Clinical Information LMP:09/26/24 Previous PAP test: Other surgery: Other history: IUD ? Material Received ?? ThinPrep-Cervical ----- ------- Signed (signature on file) GISELA Jorge ([facility]) 10/29/24 0920 ? ----- ------- ? END OF REPORT ? us Terra Gonzalez MD LAB CYTOLOGY ORDERABLES Final Result [facility] [address] [place] [phone] from Last 3 Months Insurance [facility] STAND[facility] Care Teams Special Projects Manager Relationship Specialty Start Date End Date Terra Gonzalez MD [address] [place] [phone] PCP - General Internal Medicine 08/19/24
--- OUTSIDE RECORDS SUMMARY | 2024-11-19 09:46 | XMS_ITS | Encounter Summary ---
Author Organization [employer] Address [address] [place] [address] Care Team Providers Care Plastic Technician Name Role Phone Terra Gonzalez MD Primary [...] Description 12/05/2024 9:45 AM EDT Office Visit [facility] [address] [place] [address] Terra Gonzalez MD [address] [place] [address] documented as of this encounter Visit Diagnoses Not on filedocumented in this encounter Care Teams Plastic Technician Relationship Specialty Start Date End Date Terra Gonzalez MD [address] [place] [address] PCP - General Internal Medicine 08/19/24 documented as of this encounter
--- OUTSIDE RECORDS SUMMARY | 2024-11-19 09:46 | XMS_ITS | Encounter Summary ---
Author Organization [facility] Address [address] [place] [address] Care Team Providers Care Industrial Chemist Name Role Phone Physician, Pcp Unknown Primary Care Provider Maribel vailable Encounter Details Date Type Department Care Team (Latest Contact Info) Description 10/31/2024 Lab Requisition [facility] - Main Lab [address] [facility] [place] [address] Terra Gonzalez MD [address] [facility] 1 [place] [phone] Epilepsy, unspecified, not intractable, without status epilepticus (CMS/HCC); Acute nasopharyngitis (common cold); Headache, unspecified; Other chronic pain Social History Tobacco Use Types Packs/Day Years [...] Description 01/09/2025 1:00 PM EDT Office Visit [facility] [address] [facility] [address] [place] [address] Gilberto Wood MD [address] [phone] documented as of this encounter Procedures Procedure Name Priority Date/Time Associated Diagnosis Comments HIV 1, 2 ANTIBODY, P24 ANTIGEN WITH [...] (common cold) Headache, unspecified Other chronic pain SST - GOLD Routine 10/31/2024 11:15 AM [...] (common cold) Headache, unspecified Other chronic pain documented in this encounter Results * SST tube (10/31/2024 11:15 AM EST) Pathologist [facility] Extra Tube Hold for add-ons. 10/31/2024 4:01 PM [facility] Comment:Auto resulted. Blood Venous blood specimen / Unknown 10/31/2024 11:15 AM EST 10/31/2024 2:24 PM EST Terra Gonzalez MD LAB BLOOD ORDERABLES Final R esult [facility] [address] [place] [address], * (ABNORMAL) CBC auto differential (10/31/2024 11:15 AM EST) Pathologist [facility] WBC 5.5 4.8 - 10.8 K/mcL LAB HEMETOLOGY METHOD 10/31/2024 2:32 PM [facility] RBC 4.60 3.80 - 4.80 M/mcL LAB HEMETOLOGY METHOD 10/31/2024 2:32 PM [facility] Hemoglobin 12.3 11.5 - 16.0 g/dL LAB HEMETOLOGY METHOD 10/31/2024 2:32 PM [facility] Hematocrit 40.0 35.0 - 47.0 % LAB HEMETOLOGY METHOD 10/31/2024 2:32 PM [facility] MCV 87.1 79.0 - 98.0 FL LAB HEMETOLOGY METHOD 10/31/2024 2:32 PM [facility] MCH 26.8(L) 27.0 - 32.0 pcg LAB HEMETOLOGY METHOD 10/31/2024 2:32 PM [facility] MCHC 30.8(L) 32.0 - 37.0 g/dL LAB HEMETOLOGY METHOD 10/31/2024 2:32 PM [facility] RDW 13.2 11.0 - 15.0 % LAB HEMETOLOGY METHOD 10/31/2024 2:32 PM [facility] Platelets 384 130 - 400 K/mcL LAB HEMETOLOGY METHOD 10/31/2024 2:32 PM [facility] MPV 9.9 7.0 - 11.0 FL LAB HEMETOLOGY METHOD 10/31/2024 2:32 PM [facility] NRBC 0.0 <1.0 % LAB HEMETOLOGY METHOD 10/31/2024 2:32 PM [facility] NRBC Absolute 0.00 <0.10 K/mcL LAB HEMETOLOGY METHOD 10/31/2024 2:32 PM [facility] Neutrophils Relative 70.0 % LAB HEMETOLOGY METHOD 10/31/2024 2:32 PM [facility] Lymphocytes Relative 15.6 % LAB HEMETOLOGY METHOD 10/31/2024 2:32 PM [facility] Monocytes Relative 9.8 % LAB HEMETOLOGY METHOD 10/31/2024 2:32 PM [facility] Eosinophils Relative 4.0 % LAB HEMETOLOGY METHOD 10/31/2024 2:32 PM [facility] Basophils Relative 0.4 % LAB HEMETOLOGY METHOD 10/31/2024 2:32 PM [facility] Immature Granulocytes Relative 0.2 % LAB HEMETOLOGY METHOD 10/31/2024 2:32 PM EST [facility] Neutrophils Absolute 3.85 1.50 - 7.00 K/mcL LAB HEMETOLOGY METHOD 10/31/2024 2:32 PM [facility] Lymphocytes Absolute 0.86(L) 1.00 - 5.00 K/mcL LAB HEMETOLOGY METHOD 10/31/2024 2:32 PM EST [facility] Monocytes Absolute 0.54 0.20 - 1.00 K/mcL LAB HEMETOLOGY METHOD 10/31/2024 2:32 PM EST [facility] Eosinophils Absolute 0.22 0.00 - 0.50 K/mcL LAB HEMETOLOGY METHOD 10/31/2024 2:32 PM [facility] Basophils Absolute 0.02 0.00 - 0.20 K/mcL LAB HEMETOLOGY METHOD 10/31/2024 2:32 PM EST [facility] Immature Granulocytes Absolute 0.01 0.00 - 0.03 K/mcL LAB HEMETOLOGY METHOD 10/31/2024 2:32 PM [facility] Blood Venous blood specimen / Unknown 10/31/2024 11:15 AM EST 10/31/2024 2:24 PM EST us Terra Gonzalez MD LAB BLOOD ORDERABLES Final R esult [facility] [address] [place] [address], * (ABNORMAL) Lipid panel with reflex to direct LDL (10/31/2024 11:15 AM EST) Cholesterol 175 0 - 200 mg/dL LAB CHEMISTRY METHOD 10/31/2024 2:44 PM EST [facility] Triglycerides 67 0 - 150 mg/dL LAB CHEMISTRY METHOD 10/31/2024 2:44 PM [facility] HDL 60 >=40 mg/dL LAB CHEMISTRY METHOD 10/31/2024 2:44 PM [facility] LDL Calculated 102(H) 0 - 100 mg/dL LAB CHEMISTRY METHOD 10/31/2024 2:44 PM [facility] VLDL Cholesterol Narinder 13.4 mg/dL LAB CHEMISTRY METHOD 10/31/2024 2:44 PM [facility] Non HDL Chol. (LDL+VLDL) 115 <145 mg/dL LAB CHEMISTRY METHOD 10/31/2024 2:44 PM [facility] Chol/HDL Ratio 2.9 0.0 - 4.4 LAB CHEMISTRY METHOD 10/31/2024 2:44 PM [facility] Blood Venous blood specimen / Unknown 10/31/2024 11:15 AM EST 10/31/2024 2:24 PM EST Terra Gonzalez MD LAB BLOOD ORDERABLES Final R esult Performing Organization Address City/[facility]/ZIP Co de Phone Number [facility] [address] [place] [address], [place] [phone] * Thyroid stimulating hormone with reflex to free t4 and free t3 (10/31/2024 11:15 AM EST) TSH 1.33 0.40 - 4.00 mcIU/mL LAB CHEMISTRY METHOD 10/31/2024 2:49 PM [facility] Blood Venous blood specimen / Unknown 10/31/2024 11:15 AM EST 10/31/2024 2:24 PM EST us Terra Gonzalez MD LAB BLOOD ORDERABLES Final R esult [facility] [address] [place] [address], [place] [phone] * HIV 1,2 antibody, p24 antigen with reflex to differentiation (10/31/2024 11:15 AM EST) Pathologist [facility] HIV Combo AB/AG Negative Negative LAB CHEMISTRY METHOD 10/31/2024 3:28 PM EST [facility] Blood Venous blood specimen / Unknown 10/31/2024 11:15 AM EST 10/31/2024 2:24 PM EST Narrative [facility] - 10/31/2024 3:28 PM EST This assay is a 4th generation assay allowing for earlier detection of HIV infection by detecting the presence of the HIV-1 p24 antigen as well as the traditional antibodies to HIV type 1 (including group O) and type 2. ??Use of a 4th generation assay is the current CDC recommendation for HIV screening. Terra Gonzalez MD LAB BLOOD ORDERABLES Final R esult Performing Organization Address City/[facility]/ZIP Co de Phone Number [facility] [address] [place] [address], [place] [phone] * Treponema pallidum antibody with reflex to RPR and particle agglutination (10/31/2024 11:15 AM EST) [facility] T. Pallidum Antibodies Negative Negative LAB CHEMISTRY METHOD 10/31/2024 2:59 PM EST [facility] Blood Venous blood specimen / Unknown 10/31/2024 11:15 AM EST 10/31/2024 2:24 PM EST Terra Gonzalez MD LAB BLOOD ORDERABLES Final R esult [facility] [address] [place] [address], [place] [phone] * Comprehensive metabolic panel (10/31/2024 11:15 AM EST) [facility] Sodium 138 133 - 145 mmol/L LAB CHEMISTRY METHOD 10/31/2024 2:44 PM [facility] Potassium 3.9 3.5 - 5.5 mmol/L LAB CHEMISTRY METHOD 10/31/2024 2:44 PM [facility] Chloride 105 96 - 110 mmol/L LAB CHEMISTRY METHOD 10/31/2024 2:44 PM [facility] CO2 28 21 - 32 mmol/L LAB CHEMISTRY METHOD 10/31/2024 2:44 PM [facility] Anion Gap 5 3 - 11 LAB CHEMISTRY METHOD 10/31/2024 2:44 PM [facility] Glucose 74 70 - 100 mg/dL LAB CHEMISTRY METHOD 10/31/2024 2:44 PM [facility] BUN 11 5 - 25 mg/dL LAB CHEMISTRY METHOD 10/31/2024 2:44 PM [facility] Creatinine 0.89 0.50 - 1.10 mg/dL LAB CHEMISTRY METHOD 10/31/2024 2:44 PM [facility] eGFR 88 >=60 mL/min/1. 73m2 LAB CHEMISTRY METHOD 10/31/2024 2:44 PM [facility] Comment:Calculation based on the??Chronic Kidney Disease Epidemiology Collaboration (CKD-EPI) equation refit??without adjustment for race. BUN/Creatinine Ratio 12.4 LAB CHEMISTRY METHOD 10/31/2024 2:44 PM [facility] Calcium 9.5 8.5 - 10.5 mg/dL LAB CHEMISTRY METHOD 10/31/2024 2:44 PM [facility] AST (SGOT) 14 10 - 42 unit/L LAB CHEMISTRY METHOD 10/31/2024 2:44 PM [facility] ALT (SGPT) 15 10 - 60 unit/L LAB CHEMISTRY METHOD 10/31/2024 2:44 PM [facility] Alkaline Phosphatase 64 42 - 121 unit/L LAB CHEMISTRY METHOD 10/31/2024 2:44 PM [facility] Total Protein 7.8 6.0 - 8.0 g/dL LAB CHEMISTRY METHOD 10/31/2024 2:44 PM EST [facility] Albumin 4.2 3.2 - 5.0 g/dL LAB CHEMISTRY METHOD 10/31/2024 2:44 PM EST [facility] Total Bilirubin 0.5 0.0 - 1.4 mg/dL LAB CHEMISTRY METHOD 10/31/2024 2:44 PM EST [facility] Blood Venous blood specimen / Unknown 10/31/2024 11:15 AM EST 10/31/2024 2:24 PM EST Terra Gonzalez MD LAB BLOOD ORDERABLES Final R esult Performing Organization Address [facility]/ZIP Co de Phone Number [facility] [address] [place] [address], [place] [phone] * Hepatitis panel, acute with reflex to confirmation (10/31/2024 11:15 AM EST) Hepatitis B Surface Ag Negative Negative LAB CHEMISTRY METHOD 10/31/2024 3:36 PM EST [facility] Hepatitis A Antibody IgM Negative Negative LAB CHEMISTRY METHOD 10/31/2024 3:36 PM [facility] Hep B Core IgM Negative Negative LAB CHEMISTRY METHOD 10/31/2024 3:36 PM EST [facility] Hepatitis C Antibody Negative Negative LAB CHEMISTRY METHOD 10/31/2024 3:36 PM EST [facility] Blood Venous blood specimen / Unknown 10/31/2024 11:15 AM EST 10/31/2024 2:24 PM EST us Terra Gonzalez MD LAB BLOOD ORDERABLES Final R esult Performing Organization Address City/[facility]/ZIP Co de Phone Number [facility] [address] [place] [address], documented in this encounter Visit Diagnoses Diagnosis Epilepsy, unspecified, not intractable, without status epilepticus ([facility]) Acute nasopharyngitis (common cold) Headache, unspecified Other chronic pain documented in this encounter Care Teams Industrial Chemist Relationship Specialty Start Date End Date Physician, Pcp Unknown PCP - General 10/05/24 documented as of this encounter
--- OUTSIDE RECORDS SUMMARY | 2024-11-19 09:46 | XMS_ITS | Encounter Summary ---
Author Organization [employer] Address [address] [facility] 7[address] [place] [address] Care Team Providers Care Atomic Physics Teacher Name Role Phone Terra Gonzalez MD Primary Care Provider + Reason for Visit * Reason Comments Med Refill Encounter Details Date Type Department Care Team ([facility] Contact Info) Description 09/13/2024 Refill [facility] [address] [place], [place] [phone] Terra Gonzalez MD [address] [place] [address] Social History Tobacco Use Types Packs/Day Years [...] the past 12 months, has t he Security Scorecard, [employer], oil or water company threatened to shut [...] Description 12/05/2024 9:45 AM EDT Office Visit [facility] [address] [place] [phone] Terra Gonzalez MD [address] [place] [address] documented as of this encounter Visit Diagnoses Not on filedocumented in this encounter Care Teams Atomic Physics Teacher Relationship Specialty Start Date End Date Terra Gonzalez MD [address] [place] [phone] PCP - General Internal Medicine 08/19/24 documented as of this encounter
--- OUTSIDE RECORDS SUMMARY | 2024-11-19 09:47 | XMS_ITS | Clinical Summary ---
Author Organization [facility] Address [address] [place] [address] Care Team Providers Care Sales Trader Name Role Phone Unavailable Primary Care Provider [...]
--- OUTSIDE RECORDS SUMMARY | 2024-11-19 09:47 | XMS_ITS | Encounter Summary ---
Author Organization [facility] Address [address] [place] [address] Care Team Providers Care Sql Application Developer Name Role Phone Physician, Pcp Unknown Primary Care Provider Maribel vailable Encounter Details Date Type Department Care Team (Late st Contact Info) Description 10/31/2024 10:30 AM EST Office Visit [facility] [address] [place] [phone] Ashley Meeks, JESSICA [address] [facility] [place] [address] Seizure (CMS/HCC) (Primary Dx) Social History Tobacco Use Types Packs/Day Years [...] Pulse 95 10/31/2024 10:52 AM EST Temperature - - Respiratory Rate - - Oxygen Saturation - - Inhaled Oxygen Concentration - - Weight - - Height - - Body Mass Index - - documented in this encounter Ordered Prescriptions Prescription Sig Dispense Quantity Refills Last Filled Start Date End Date lamoTRIgine (LaMICtal) 200 mg tablet 1 po hs 30 tablet 5 10/31/2024 lamoTRIgine (LaMICtal) 150 mg tablet 1 po qd in the morning 30 each 5 10/31/2024 documented in this encounter Progress Notes * JESSICA Butler - 10/31/2024 10:30 AM EST Epilepsy / Neurology clinic Visit Note Chief Complaint and Reason for Consult New visit Referred by:PCP Reason for referral:seizure History of Present Illness Interval history Patient returns for follow-up visit. Interview performed with assistance of interpretive naturalist services. States that she has had 1-2 seizures since she was last seen in the office- last seizure was on 10/20. Denies missed doses of meds. 08/16/2024: Lamotrigine level 7.3 (2-15), Keppra level 17.1 (3-60) Last visit history: She continues Lamictal 150 mg twice daily, Keppra 500 mg twice daily. 1 seizure in Jul- thinks stress may have contributed. Denies missed doses of AEDs She has been having a lot of headaches which happen after a seizure in general. She can experience photophobia and phonophobia with headache but no nausea. She has no plans for . LISA Kern is a 33 y.o. female here [...] semiology/ spell types: Type: 1 Warning signs: dejavu Description of spell: starring spell Alteration of [...] History: Past Medical History: Diagnosis Date Seizures (HCC) Past Surgical History: Past Surgical History: Procedure Laterality Date SECTION Current Outpatient Medications: lamoTRIgine (LaMICtal) 100 MG tablet, Take 1 tablet (100 mg total) by mouth 2 (two) times a day., Disp: 60 tablet, Rfl: 3 lamoTRIgine (LaMICtal) 25 MG tablet, Take 1 tablet (25 mg total) by mouth 2 (two) times a day., Disp: 60 tablet, Rfl: 3 levETIRAcetam (KEPPRA) 500 MG tablet, Take 1 tablet (500 mg total) by mouth 2 (two) times a day., Disp: 60 tablet, Rfl: 3 Family and Social History: Family History: Neurological FHx: Medical FHx: Social History: 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 EXAM Vitals: 10/31/24 1052 BP: 95/62 Pulse: 95 General Exam: Well appearing adult in no [...] normal REFLEXES: Toes down, no clonus. COORDINATION: bzroby-vbin-ayfyhe intact; ftt-xcggag-ozh intact. No postural tremor. GAIT: Labs and [...] results found for: HGBA1C Images: MRI brain 05/2024: Loss of normal hippocampal architecture, increased T2 signal in the left mesial temporal lobe, and decreased size of the hippocampus on the left suspicious for left hippocampal sclerosis. EEG 06/14/2024: Abnormal EEG in the awake and drowsy states. There were no seizures periodic patterns or epileptiform discharges. There is intermittent polymorphic delta and theta slowing in the left temporal region which is indicative of focal cerebral dysfunction in that region. [facility]- send [facility] for lamotriine 150 + 200 Assessment/Plan: Juan Carlos Kern is a 34 y.o. female with past medical history of [...] her mental health and overall wellbeing Patient reports 1-2 seizures since last visit. Plan: 1. Increase Lamcital to 150 mg + 200 mg daiy. Plan will be to eventually reduce dose of Keppra. 2. We reviewed her MRI brain and EEG results 3. Offered referral to epileptologist however patient declines at this time. I spent more than 30 minutes for the chart review, interval history, [...] this time was spent for counseling on: -[place] state driving laws explained to pt - [...] - Triggers for seizures, sleep hygiene discussed Ashley Meeks PA-C documented in this encounter Plan of Treatment Upcoming Encounters Date Type Department Care Team (Late st Contact Info) Description 01/09/2025 1:00 PM EDT Office Visit [facility] [address] [place] [phone] Gilberto Wood MD [address] [place] [address] documented as of this encounter Visit Diagnoses Diagnosis Seizure (CMS/HCC)- Primary Other convulsions documented in this encounter Discontinued Medications Medication Sig Discontinue Reason Start Date End Da te lamoTRIgine (LaMICtal) 150 mg tablet Take 1 tablet (150 mg total) by mouth 2 (two) times a day. Reorder 09/13/2024 10/31/2024 documented as of this encounter Care Teams Sql Application Developer Relationship Specialty Start Date End Date Physician, Pcp Unknown PCP - General 10/05/24 documented as of this encounter
--- OUTSIDE RECORDS SUMMARY | 2024-11-19 09:47 | XMS_ITS | Encounter Summary ---
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 COORDINATION: ccqtwe-duoy-qrdrzk intact; tkv-rffqtj-cej intact. No postural tremor. GAIT: Labs and [...] this time was spent for counseling on: -[place] state driving laws explained to pt - [...] Description 01/09/2025 1:00 PM EDT Office Visit [facility] - [address] [place] [address] Gilberto Wood MD [address] [place] [address] [address] [place] [address] documented as of this encounter Visit Diagnoses Not on filedocumented in this encounter
--- OUTSIDE RECORDS SUMMARY | 2024-11-19 09:47 | XMS_ITS | Encounter Summary ---
Author Organization [employer] Address [address] 7[address] [place] [address] Care Team Providers Care Forecast Analyst Name Role Phone Terra Gonzalez MD Primary Care Provider + Encounter Details Date Type Department Care Team (Late st Contact Info) Description 10/23/2024 Orders Only [facility] [address] [place], [place] [phone] Terra Gonzalez MD [address] [place], [place] [phone] Social History Tobacco Use Types Packs/Day Years [...] as of this encounter Miscellaneous Notes * Result Encounter Note - Terra Gonzalez MD - 10/23/2024 5:20 PM EST Patient vaginal swab on October 23, 2024 showed BV, she was asymptomatic and will follow-up complete lab results and Pap smear at next month's visit. No need for additional treatment at this time. * Result Encounter Note - Terra Gonzalez MD - 10/23/2024 5:20 PM EST Pap smear on 10/23/2024 was within normal limits, vaginal swab showed BV. Patient was asymptomatic at the time, I will follow-up with her at next month's appointment and we will treat if she is develop any symptoms. Otherwise she does not need any treatment at this time. documented in this encounter Plan of Treatment Upcoming Encounters Date Type Department Care Team (Late st Contact Info) Description 12/05/2024 9:45 AM EDT Office Visit [facility] [address] [place], [place] [phone] Terra Gonzalez MD [address] [place] [address] documented as of this encounter Procedures Procedure Name Priority Date/Time Associated Diagnosis Comments BACTERIAL VAGINOSIS PANEL Routine 10/23/2024 9:48 AM EST HPV DNA, LOW/HIGH RISK Routine 10/23/2024 9:48 AM EST documented in this encounter Results * HPV DNA, Low/High Risk (10/23/2024 9:48 AM EST) HPV High Risk Negative Negative [facility] HPV Genotype 16 Negative Negative [facility] HPV Genotype 18 Negative Negative [facility] Comment:HPV testing performe d at [facility] (CLIA#[id number]), [address] [place] [phone].Testing for HPV was performed using the [employer] NIKKI 6800system. The presence of HPV in the female [...] MD LAB BLOOD ORDERABLES Fin al Result [facility] [address] [place] [phone] * (ABNORMAL) Bacterial Vaginosis (10/23/2024 9:48 AM EST) TRICHOMONAS VAGINALIS DETECTION BY PCR NOT DETECTED Not Detect [facility] BACTERIAL VAGINOSIS DETECTION BY PCR POSITIVE(A) Negative [facility] Comment:The BV organism targ ets [...] evaluatedin patients under the age of 14. JAEN GROUP DETECTION BY PCR NOT DETECTED Not Detect [facility] Jane glab krusei PCR NOT DETECTED Not Detect [facility] 10/23/2024 9:48 AM EST 10/23/2024 2:13 PM EST us Terra Gonzalez MD LAB MICROBIOLOGY - GENER AL ORDERABLES Final Result [facility] [address] [place] [phone] documented in this encounter Visit Diagnoses Not on filedocumented in this encounter Care Teams Forecast Analyst Relationship Specialty Start Date End Date Terra Gonzalez MD [address] [place] [phone] PCP - General Internal Medicine 08/19/24 documented as of this encounter
== END 2024-11-19 08:54 | disposition home or self-care (01) ==
LOC: HO.HHCX 08:53
PROVIDERS: Visit Provider Internal Medicine
DX: M54.9 Dorsalgia, unspecified (principal)
CPT/HCPCS: 72070

== ENCOUNTER → 2024-11-19 08:54 | Outpatient (BNV) | payer MEDICAID, SELFPAY | PROVIDERS: Visit Provider Radiology Diagnostic Radiology | DX: M54.6 Pain in thoracic spine (principal); M41.35 Thoracogenic scoliosis, thoracolumbar region | CPT/HCPCS: 72070 ==